=== PATIENT | female | born 1930 | race Caucasian/White ===

== ENCOUNTER → 2016-11-13 | Outpatient (REF) | payer MEDICARE ==
[2016-11-13 10:19] LABS: BILIRUBIN,URINE Negative (Negative); CLARITY,URINE Clear; COLOR,URINE Yellow; GLUCOSE, URINE (UA) Negative (Negative); LEUKOCYTE ESTERASE ,URINE Negative (Negative); UROBILINOGEN,URINE 0.2 mg/dL (0.2-1.0)
== END ==
LOC: LAB 09:27
PROVIDERS: ATTEND Family Medicine
DX: N39.0 Urinary tract infection, site not specified (principal)
CPT/HCPCS: 81003

== ENCOUNTER → 2016-12-22 | Outpatient (CLI) | payer MEDICARE | LOC: EMS 07:05 | DX: Z53.20 Procedure and treatment not carried out because of patient's decision for unspecified reasons (principal) ==

== ENCOUNTER → 2017-01-07 | Outpatient (CLI) | payer MEDICARE ==
[2017-01-07 14:22] LABS: BILIRUBIN,URINE Negative (Negative); CLARITY,URINE Clear; COLOR,URINE Yellow; GLUCOSE, URINE (UA) Negative (Negative); LEUKOCYTE ESTERASE ,URINE Negative (Negative); PH,URINE 5.5 (5.0 - 8.0); UROBILINOGEN,URINE 0.2 mg/dL (0.2-1.0)
[2017-01-07 14:57] LABS: ANION GAP 11.7 MEQ/L (3-15)
== END ==
LOC: LAB 14:03
PROVIDERS: ATTEND Family Medicine
DX: I48.1 Persistent atrial fibrillation (principal); R79.89 Other specified abnormal findings of blood chemistry; N39.0 Urinary tract infection, site not specified
CPT/HCPCS: 36415; 80048; 81003; 93005

== ENCOUNTER → 2017-01-22 | Outpatient (CLI) | payer MEDICARE ==
[2017-01-22 15:20] LABS: ANION GAP 12.3 MEQ/L (3-15); MAGNESIUM* 1.7 mg/dL (1.6-2.3)
== END ==
LOC: LAB 14:03
PROVIDERS: ATTEND Family Medicine
DX: E83.42 Hypomagnesemia (principal); R79.89 Other specified abnormal findings of blood chemistry
CPT/HCPCS: 36415; 80048; 83735

== ENCOUNTER → 2017-01-26 | Outpatient (CLI) | payer MEDICARE ==
--- NOTE | 2017-01-26 14:31 | Diagnostic Imaging Report ---
PROCEDURE: CT head without contrast. TECHNIQUE: Multiple contiguous axial images were obtained through the brain without the use of intravenous contrast. INDICATION: CVA. AVAILABLE COMPARISONS: None. FINDINGS: The size of the lateral, third and fourth ventricles is within normal limits. No mass effect or shift of midline structures identified. No acute intra-axial or extra-axial hemorrhage is seen. There is no abnormal extra-axial fluid collection. Periventricular white matter disease is present bilaterally compatible with age-related change and/or chronic microvascular ischemic change. There are no abnormally hyperdense vascular structures to suggest acute vessel thrombosis. No mass lesion is identified. No CT evidence for acute infarct. Calvarium is negative. IMPRESSION: 1. White matter disease compatible with age-related change and/or chronic microvascular ischemic change. No acute finding. Dictated by: Dictated on workstation # [id number]
== END ==
LOC: RAD 13:55
PROVIDERS: ATTEND Family Medicine
DX: I66.01 Occlusion and stenosis of right middle cerebral artery (principal)
CPT/HCPCS: 70450

== ENCOUNTER 2017-02-03 12:16 | Emergency (ER) | payer MEDICARE ==
[~2017-02-03] VITALS: Ht 160 cm; Wt 58.0 kg
--- OUTSIDE RECORDS SUMMARY | 2017-02-03 12:20 | XMS REPORT | Continuity of Care Document ---
Author Author [facility] Organization [facility] Address Unknown Phone Unavailable Care Team Providers Care [employer] General Supervisor Name Role Phone Alexis Salmeron MD PP [phone] Insurance Providers Payer Name Policy Number Subscriber Name Relationship Cj Richards [facility] [id number] Radha Abarca 18 Self / Same As Patient Medicare A And B [id number] Radha Abarca 18 Self / Same As Patient Advance Directives Directive Response Recorded Date Advanced Directives Yes 07/27/13 1:24pm Type Living Will 07/27/13 1:24pm Problems No Known Problems or Medical conditions. Allergies, Adverse Reactions, Alerts Allergen Type Severity Reaction Last Updated Penicillins Allergy 07/27/13 Fzmazkj-Tih-Eoc Reductase Inhibitor Allergy 07/27/13 meloxicam Allergy 07/27/13 Medications No known medications Response Recorded Date/Time Status not known Unknown Results No Known Relevant Diagnostic Tests, Laboratory Data and/or Discharge Summary. Procedures Procedure Code Date Urine Culture 12/15/12
[2017-02-03 12:39] LABS: BASOPHILS % (AUTO) 0 % (0-2); EOSINOPHILS % (AUTO) 0 % (0-4); LYMPHOCYTES # (AUTO) 0.9 X10^3; MEAN CORPUSCULAR HEMOGLOBIN 28.4 PG (26.0-34.0); MEAN CORPUSCULAR VOLUME 89 FL (80-100); MEAN PLATELET VOLUME 10.1 FL (6.0-9.5); MONOCYTES # (AUTO) 0.5 X10^3; MONOCYTES % (AUTO) 8 % (3-11); NEUTROPHILS # (AUTO) 5.3 X10^3; NEUTROPHILS % (AUTO) 78 % (51-67); PLATELET COUNT 193 10^3uL (150-450); WHITE BLOOD COUNT 6.76 10^3uL (4.0-11.0)
[2017-02-03 12:43] LABS: MEAN CORPUSCULAR HGB CONC 31.7 g/dL (31.0-37.0)
[2017-02-03 13:01] LABS: ALBUMIN 4.2 g/dL (3.4-5.0); ANION GAP 15.1 MEQ/L (3-15); CALCULATED IONIZED CALCIUM 4.6 mg/dL (3.8-4.6); TOTAL PROTEIN 7.6 g/dL (6.4-8.5)
[2017-02-03 13:04] LABS: BILIRUBIN,URINE Negative (Negative); COLOR,URINE Yellow; GLUCOSE, URINE (UA) Negative (Negative); LEUKOCYTE ESTERASE ,URINE 1+ (Negative); PH,URINE 6.5 (5.0 - 8.0); UROBILINOGEN,URINE 0.2 mg/dL (0.2-1.0)
--- NOTE | 2017-02-03 13:05 | NUR ---
Pt resting quietly on ER cart with HOB elevated approx 45 degrees. Responds verbally when questioned but does not initiate conversation. Does not open eyelids when asked to do so. Lt handgrip weak, Rt handgrip none. Does move toes and feet as commanded - feet movement required multiple commands. Not able to lift either leg when commanded to do so.
--- NOTE | 2017-02-03 13:07 | Diagnostic Imaging Report ---
PROCEDURE: CT head without contrast. TECHNIQUE: Multiple contiguous axial images were obtained through the brain without the use of intravenous contrast. INDICATION: Weakness. Compared 01/26/2017. FINDINGS: There is periventricular white matter disease hypointense likely owing to small vessel sequelae as a stable chronic finding, no sulcal effacement. No findings of focal or generalized edema. The basilar cisterns are patent. The ventricular system nondilated and nondisplaced. There is no hemorrhage. IMPRESSION: Unchanged chronic white matter disease, no hemorrhage, focal edema or acute pathology identified. Dictated by: Dictated on workstation # [id number]
[2017-02-03] MEDS ORDERED: HYDR-33 PO (13:18)
[2017-02-03] MEDS ORDERED: COLE625T9 PO (13:18)
[2017-02-03] MEDS ORDERED: LSNP20T PO (13:18)
[2017-02-03] MEDS ORDERED: LEVO50TA6 PO (13:18)
[2017-02-03] MEDS ORDERED: AMLO10TA82 PO (13:18)
--- NOTE | 2017-02-03 13:18 | Diagnostic Imaging Report ---
INDICATION: Chest pain and dyspnea. DISCUSSION: Single portable upright view of the chest was obtained, comparison 01/08/2016. Cardiomegaly is stable. Small left pleural effusion appears new. Patchy opacity within the medial left lung base could represent atelectasis and/or pneumonia. Mildly elevated right hemidiaphragm is stable. No osseous abnormality. IMPRESSION: 1. Small left pleural effusion. 2. Cardiomegaly. 3. Left lung base opacities. Dictated by: Dictated on workstation # [id number]
[2017-02-03 13:21] LABS: CLARITY,URINE Slightly Cloudy
[2017-02-03 13:37] LABS: URINE CENTRIFUGED VOLUME 12 mL
[2017-02-03 15:20] LABS: BILIRUBIN,URINE Negative (Negative); CLARITY,URINE Clear; COLOR,URINE Yellow; GLUCOSE, URINE (UA) Negative (Negative); LEUKOCYTE ESTERASE ,URINE Negative (Negative); UROBILINOGEN,URINE 0.2 mg/dL (0.2-1.0)
--- NOTE | 2017-02-03 15:36 | NUR ---
er requests 2nd straight cath, the first one obtained was to dirty, 2nd one retrieved and sent to lab
[2017-02-03 15:37] LABS: RBC,URINE 20-50 /HPF; URINE CENTRIFUGED VOLUME 10 mL
[2017-02-03 17:14] VITALS: BP 137/64
== END 2017-02-03 17:15 | disposition home or self-care (01) ==
LOC: ED 12:17
DX: R53.1 Weakness (principal); J90 Pleural effusion, not elsewhere classified
CPT/HCPCS: 36415; 51701; 70450; 71010; 80053; 81003; 81015; 83605; 83880; 85025; 86140; 96360; 99285; J7030; 99284

== ENCOUNTER → 2017-02-03 | Outpatient (CLI) | payer MEDICARE ==
[~2017-02-03] MED LIST: AMLO10TA82 PO; COLE625T9 PO; HYDR-33 PO; LEVO50TA6 PO; LSNP20T PO
== END ==
LOC: EMS 12:00
PROVIDERS: ATTEND Emergency Medicine
DX: R53.1 Weakness (principal)

== ENCOUNTER 2017-02-18 11:47 | Inpatient (IN) | payer MEDICARE ==
[~2017-02-18] VITALS: Ht 160 cm; Wt 70.1 kg
[~2017-02-18 11:47] MED LIST changes: -AC325T PO; -ASPI-586 PO; -CALC600T12 PO; -CHOL10002 PO; -CPR500T PO; -FURO20TA4 PO; -LACT10SO5 PO; -MULT-1034 PO; -NIAC500T24 PO; -OMEG1CAP14 PO; -OMEP20TA33 PO; -POTA10CA43 PO; -SPRN25T PO; -TR1C15 TOP; -TRIA10PO3 MC; -VIT1CAPS43 PO; -VITA400C58 PO
[2017-02-18] MEDS ORDERED: POTA10CA43 PO (12:08)
[2017-02-18] MEDS ORDERED: TR1C15 TOP (12:08)
[2017-02-18] MEDS ORDERED: FURO20TA4 PO (12:08)
[2017-02-18] MEDS ORDERED: TRIA10PO3 MC (12:08)
[2017-02-18] MEDS ORDERED: OMEP20TA33 PO (12:08)
[2017-02-18] MEDS ORDERED: ASPI-586 PO (12:08)
[2017-02-18] MEDS ORDERED: NS IV 500 ML 500 ML IV SCH (12:15)
[2017-02-18 12:33] LABS: BASOPHILS % (AUTO) 0 % (0-2); EOSINOPHILS % (AUTO) 1 % (0-4); LYMPHOCYTES # (AUTO) 1.2 X10^3; MEAN CORPUSCULAR HEMOGLOBIN 28.7 PG (26.0-34.0); MEAN CORPUSCULAR HGB CONC 32.2 g/dL (31.0-37.0); MEAN CORPUSCULAR VOLUME 89 FL (80-100); MEAN PLATELET VOLUME 9.9 FL (6.0-9.5); MONOCYTES # (AUTO) 0.5 X10^3; MONOCYTES % (AUTO) 8 % (3-11); NEUTROPHILS # (AUTO) 4.9 X10^3; NEUTROPHILS % (AUTO) 73 % (51-67); PLATELET COUNT 162 10^3uL (150-450); WHITE BLOOD COUNT 6.77 10^3uL (4.0-11.0)
[2017-02-18 12:47] LABS: ALBUMIN 3.7 g/dL (3.4-5.0); ANION GAP 14.4 MEQ/L (3-15); CALCULATED IONIZED CALCIUM 4.8 mg/dL (3.8-4.6); TOTAL PROTEIN 6.9 g/dL (6.4-8.5)
[2017-02-18 13:05] LABS: BILIRUBIN,URINE Negative (Negative); CLARITY,URINE Cloudy; GLUCOSE, URINE (UA) Negative (Negative); LEUKOCYTE ESTERASE ,URINE 1+ (Negative); PH,URINE 5.5 (5.0 - 8.0); UROBILINOGEN,URINE 0.2 mg/dL (0.2-1.0)
[2017-02-18 13:07] LABS: COLOR,URINE Dark Yellow
--- NOTE | 2017-02-18 13:08 | Diagnostic Imaging Report ---
CLINICAL INDICATION: Patient with weakness. Fell. Patient found unresponsive. EXAM: Axial CT scan of brain performed without IV contrast. Coronal sagittal reformatted images are created. COMPARISON: Head CT without IV contrast dated 02/03/2017. FINDINGS: There is no evidence of acute cerebral infarct, intracranial hemorrhage, or gross mass effect. Again seen patchy confluent areas of low-attenuation white matter changes seen throughout both cerebral hemispheres, likely representing chronic small vessel ischemic disease and leukoaraiosis. There is normal bee-white matter distinction. The brain parenchymal volume appears appropriate for patient's age. There is no significant midline shift or herniation. There is no evidence of hydrocephalus. The basal cisterns are unremarkable. The skull, extracranial soft tissue, and orbits are unremarkable. There is mild mucosal thickening involving the ethmoid sinus. IMPRESSION: Stable CT scan of brain with no evidence of interval acute intracranial process. Dictated by: Dictated on workstation # [id number]
[2017-02-18 13:12] LABS: URINE CENTRIFUGED VOLUME 12 mL
[2017-02-18 13:52] LABS: BILIRUBIN,URINE Negative (Negative); CLARITY,URINE Cloudy; GLUCOSE, URINE (UA) Negative (Negative); LEUKOCYTE ESTERASE ,URINE Negative (Negative); PH,URINE 5.5 (5.0 - 8.0); UROBILINOGEN,URINE 0.2 mg/dL (0.2-1.0)
[2017-02-18 13:53] LABS: COLOR,URINE Dark Yellow; RBC,URINE 0-2 /HPF; URINE CENTRIFUGED VOLUME <10mL Unspun
[2017-02-18] MEDS ORDERED: CIPROFLOXACIN 400 MG/200 ML 200 ML IV ONE (14:05)
--- NOTE | 2017-02-18 14:42 | NUR ---
Ciprofloxacin IV stated at 100 ml/hr to right peripheral IV site per physician order. Addendum: 02/23/17 at 1316 by [id number] Amendment undone in ED - 02/23/17 at 1321 by [id number] Ciprofloxacin IV was started at 100 ml/hr to right peripheral IV site per physician order. patient was transfered to the med/Surg floor afterm IV was started.
--- NOTE | 2017-02-18 14:51 | NUR ---
vitals wer temp 97.3 temporal, pulse 93, resp 16, bp 147/63, and SpO2 95% on room air.
[2017-02-18 15:13] LABS: AMPHETAMINE SCREEN, URINE Negative (Negative); CANNABINOID SCREEN, URINE Negative (Negative); METHAMPHETAMINE SCREEN URINE S NEGATIVE (NEGATIVE); OPIATE SCREEN URINE Positive (Negative); PROPOXYPHENE STAT NEGATIVE (NEGATIVE)
--- NOTE | 2017-02-18 15:25 | NUR ---
Ciprofloxacin IV was started at 1523 to right peripheral IV site. IV was set to run at 100ml/hr for 30 minutes. Patient was transfered to Med/surg floor after IV med was started.
[2017-02-18 17:20] VITALS: BP 143/64
--- NOTE | 2017-02-18 17:20 | NUR ---
Admit to room 310 per stretcher from ED where the patient has been most of the day. Found at home this morning by family where she had apparently been sitting at the kitchen table all night and was mostly unresponsive. To ED per EMS. Several family members accompany patient to room. See admission assessments.
[2017-02-18] MEDS ORDERED: ACETAMINOPHEN 325 MG TAB (TYLENOL) PO PRN (17:35)
[2017-02-18] MEDS ORDERED: POLYETHYLENE GLYCOL 17 GM (MIRALAX) PACKET PO PRN (17:35)
[2017-02-18] MEDS ORDERED: PROMETHAZINE HCL INJ 12.5 MG in SODIUM CHLORIDE 25 ML IV PRN (17:35)
[2017-02-18] MEDS ORDERED: ONDANSETRON 4 MG (ZOFRAN) ORAL DISSOLVE TAB PO PRN (17:35)
[2017-02-18] MEDS ORDERED: DOCUSATE SODIUM 100 MG (COLACE) CAP PO PRN (17:35)
[2017-02-18] MEDS ORDERED: MAGNESIUM HYDROXIDE 80MG/ML (MILK OF MAGNESIA) 30 ML UDC PO PRN (17:35)
[2017-02-18] MEDS ORDERED: CALCIUM CARBONATE CHEWABLE 300 MG (TUMS) TABLET PO PRN (17:35)
[2017-02-18] MEDS ORDERED: IBUPROFEN 600 MG (MOTRIN) TAB PO PRN (17:35)
[2017-02-18] MEDS ORDERED: MAG HYDROX/AL HYDROX/SIMETH 200-200-20/5 ML (MAG-AL PLUS) 30 ML UDC PO PRN (17:35)
--- NOTE | 2017-02-18 18:00 | NUR ---
During admission assessment, patient participates in answering questions, but according to family her answers were not always accurate. Patient oriented to person and place; disoriented to time. Of note patient has 3-4+ pitting edema on bilateral lower extremities. Lower legs are reddedned with shiny appearance and some blistering. This is the only pain complaint that the patient has.
--- NOTE | 2017-02-18 18:03 | History and Physical (E) ---
History & Physical PCP: Alexis Salmeron MD CC: Lethargy, altered mental status. ANALY Abarca is a 86 year old female admitted from ED 02/18 where she presented from home via EMS. Has been lethargic for the last 24 hours and this AM, family report seeing her at kitchen table, not talking, not really able to get up on her own. They had to lower her to the floor. In ED, vitals were actually stable and normal. CBC was fairly unremarkable. Chemistry showed normal electrolytes, preserved renal function. AST 85, ALT 57, AlkP 192, Bili 1.1. Lactic acid was normal. UA showed UTI. Tox screen positive for opiates. CT head negative for acute changes. CXR was not checked but she had a CXR from ED visit 02/03/2017 with results as noted below. She was given NS bolus x 2 in ED and ciprofloxacin. She was then admitted for further management. ED physician reports additional history: has been more confused in the last few weeks. Taking medications incorrectly at home. PCP has been planning to admit her NH but this has not yet happened. On arrival to unit, stirs to exam but appears tired. Responds intermittently. History obtained from son, daughter, who are both present. Son was visiting today for a routine check up and found her slumped at the kitchen table, not very responsive. The front door was open. She has notably been more tired and fatigued. There was concern she maybe had slept all night at the kitchen table. When asked, she says she doesn't know if that's what happened. She says she has been sleeping a lot lately. Has pain in right hip related to prior hip fracture. Denies fever. Has had vomiting at home. No abdominal pain. Denies constipation. Some diarrhea, she thinks. No dyspnea. Denies chest pain. PMH * HTN * Chronic pain * Hypothyroidism * HLD * GERD * TIA * OA * Osteoporosis * Heart murmur * Bilateral lower extremity edema * Right hip fracture 10/2016 * Falls at home PSH * Tonsillectomy * Appendectomy * D&C * Cholecystectomy * Hysterectomy * Oral surgery * Basal cell carcinoma excision * Eyelid surgery bilaterally * Right partial hip replacement 10/2016 * Cataract surgery * Hysterectomy ALLERGIES: Please see list at end of report. HOME MEDICATIONS: Please see list at end of report. FH SH Lives independently in her own apartment. ROS CONSTITUTION: Lost at least 24 pounds just in the last few weeks. Denies fever or chills. More tired. HEENT: No change in vision or hearing. No sores in mouth, sore throat. CV: No chest pain, palpitations. PULM: No cough, shortness of breath, difficulty breathing. GI: Diarrhea at times. Some vomiting at times. No constipation. : No dysuria. No blood in urine. MS: Right hip pain. Bilateral knee pain, arthritis. NEURO: Generalized weakness. INTEG: No rashes, lesions, or sores. ENDO: Feels cold frequently. HEME/LYMPH: No easy bruising or bleeding. No swollen glands. PSYCH: No change in mood or behavior. OBJECTIVE Vital Signs Date Time Temp Pulse Resp B/P Pulse Ox O2 Delivery O2 Flow Rate FiO2 02/18/17 11:55 98.0 85 16 125/57 97 Room Air GEN: Now more interactive but appears quite tired and can't keep eyes open. HEENT:Eyes closed. Mild eyelid swelling. On exam, clear sclerae, Arcus senilis. EOMI. Somewhat dry oral mucosa. CV: RRR S1 S2 audible with III/ systolic crescendo murmur loudest at LSB. LUNGS: CTA B though mildly diminished. No R/R/W. ABD: Soft, NT/ND with normal bowel sounds. EXTR: 3+ BLE edema from feet to knees. Bilateral BLE erythema with pebbling and chronic venous stasis changes. INTEG: Legs as described. Otherwise, age related changes and pallor. NEURO: Generalized weakness. Facial nerves seem generally weak though symmetric. Arm strength 3/5 bilaterally. Gait not assessed. No clonus. Normal patellar and ankle reflexes. Weight: 75 kg Laboratory Results-14 Days 02/18/17 12:30: Acetaminophen Level < 10.0L, Alanine Aminotransferase (ALT/SGPT) 57, Albumin 3.7 , Albumin/Globulin Ratio 1.156, Alkaline Phosphatase 192H, Anion Gap 14.4, Aspartate Amino Transf (AST/SGOT) 85H, BUN/Creatinine Ratio 28H, Basophils # ( Auto) 0.0, Basophils (%) (Auto) 0, Blood Urea Nitrogen 24H, Calcium Level 10.6, Calcium/Ionized Calcium Ratio 4.8H, Calculated Osmolality 280, Carbon Dioxide Level 25, Chloride Level 108, Creatinine 0.87, Eosinophils # (Auto) 0.0, Eosinophils (%) (Auto) 1, Estimat Glomerular Filtration Rate 74.7, Estimated GFR (Non- 61.7, Glucose Level 100#, Hematocrit 39.50, Hemoglobin 12.7, Lymphocytes # (Auto) 1.2, Lymphocytes (%) (Auto) 18L, Mean Corpuscular Hemoglobin 28.7, Mean Corpuscular Hemoglobin Concent 32.2, Mean Corpuscular Volume 89, Mean Platelet Volume 9.9H, Monocytes # (Auto) 0.5, Monocytes (%) (Auto) 8, IC-Cof-Y-Type Natriuretic Peptide 210, Neutrophils # ( Auto) 4.9, Neutrophils (%) (Auto) 73H, Platelet Count 162, Potassium Level 4.5, Red Blood Count 4.43, Red Cell Distribution Width 16.0H, Sodium Level 143, Total Bilirubin 1.1H, Total Protein 6.9, White Blood Count 6.77 02/18/17 12:55: Urine Bacteria 4+H, Urine Bilirubin Negative, Urine Blood Trace-intactH, Urine Clarity Cloudy, Urine Collection Type Catheter, Urine Color Dark yellow, Urine Glucose (UA) Negative, Urine Ketones 1+H, Urine Leukocyte Esterase 1+H, Urine Microscopic RBC 5-10H, Urine Mucus Rare, Urine Nitrite PositiveH, Urine Protein 1+H, Urine Specific Howard 1.025, Urine Squamous Epithelial Cells >100, Urine Urobilinogen 0.2, Urine WBC 10-20H, Urine pH 5.5, Volume Urine Centrifuged 12 ml 02/18/17 13:35: Urine Bacteria 4+H, Urine Bilirubin Negative, Urine Blood Trace-intactH, Urine Clarity Cloudy, Urine Collection Type Catheter, Urine Color Dark yellow, Urine Glucose (UA) Negative, Urine Ketones TraceH, Urine Leukocyte Esterase Negative, Urine Microscopic RBC 0-2, Urine Mucus Rare, Urine Nitrite PositiveH, Urine Protein TraceH, Urine Specific Howard 1.025, Urine Squamous Epithelial Cells None, Urine Urobilinogen 0.2, Urine WBC 5-10H, Urine pH 5.5, Volume Urine Centrifuged <10ml unspun, Ur Tricyclic Antidepressants Screen Negative, Urine Amphetamines Screen Negative, Urine Barbiturates Screen Negative, Urine Benzodiazepines Screen Negative, Urine Cannabinoids Screen Negative, Urine Cocaine Screen Negative, Urine Methadone Screen Negative, Urine Methamphetamines Screen Negative, Urine Opiates Screen PositiveH, Urine Oxycodone Screen Negative, Urine Phencyclidine Screen Negative, Urine Propoxyphene Screen Negative 02/18/17 14:22: Lactic Acid Level 1.6 MICRO 02/18 Blood culture PENDING 02/18 Urine culture PENDING IMAGING 02/18/17 CT HEAD WO CLINICAL INDICATION: Patient with weakness. Fell. Patient found unresponsive. EXAM: Axial CT scan of brain performed without IV contrast. Coronal sagittal reformatted images are created. COMPARISON: Head CT without IV contrast dated 02/03/2017. FINDINGS: There is no evidence of acute cerebral infarct, intracranial hemorrhage, or gross mass effect. Again seen patchy confluent areas of low-attenuation white matter changes seen throughout both cerebral hemispheres, likely representing chronic small vessel ischemic disease and leukoaraiosis. There is normal bee-white matter distinction. The brain parenchymal volume appears appropriate for patient's age. There is no significant midline shift or herniation. There is no evidence of hydrocephalus. The basal cisterns are unremarkable. The skull, extracranial soft tissue, and orbits are unremarkable. There is mild mucosal thickening involving the ethmoid sinus. IMPRESSION: Stable CT scan of brain with no evidence of interval acute intracranial process. REFERENCE 02/03/17 CHEST 1 VIEW, AP/PA ONLY* INDICATION: Chest pain and dyspnea. DISCUSSION: Single portable upright view of the chest was obtained, comparison . Cardiomegaly is stable. Small left pleural effusion appears new. Patchy opacity within the medial left lung base could represent atelectasis and/ or pneumonia. Mildly elevated right hemidiaphragm is stable. No osseous abnormality. IMPRESSION: 1. Small left pleural effusion. 2. Cardiomegaly. 3. Left lung base opacities. ASSESSMENT Radha Abarca is a 86 year old female admitted from ED 02/18 with encephalopathy and urinary tract infection. She has had a significant decline in function and ability to provide self-care. She has several chronic problems. PLAN * Encephalopathy: Could be due to UTI but differential includes other infectious , metabolic, neurologic, medication adverse effect. Check TSH, ammonia. Treat UTI. Avoid sedatives and narcotics. OT eval and treat. Consider MRI. * Fatigue, Unintentional Weight Loss: Broad differential. Initial eval: TSH, FT4 , ESR, CRP. Treat UTI. Consider autoimmune workup, MG workup, MS workup. Template Worker consult. * Complicated UTI: Urine and blood cultures pending. Got ciprofloxacin in ED, but because of encephalopathy, switch to ceftriaxone. (PCN allergy noted.) Treat for 5 days minimum. * BLE Edema: No prior history of heart failure. Check for prior echo. Hold furosemide for now. JANAE mehta. * Heart Murmur, Possible Heart Failure: Check NT-pro-BNP. Check echo. nt * Dehydration: On the basis of labs, exam. NS bolus given in ED. Additional liter maintenance. I&O, daily weight. * Medication Non-adherence: Reportedly taking medications at home incorrectly and inconsistently. Likely needs placement, per PCP and family. * Deconditioning: PT/OT eval and treat. * F/E/N: Regular diet. IVF as above. Peripheral IV. I&O, daily weight. * Prophylaxis: Enoxaparin * Code Status: DNR. Discussed at time of admission. * Dispo: Inpatient expecting 3-day stay minimum. Would probably benefit from skilled care. Probably needs long-term placement. CHRONIC ISSUES Home medications to be reviewed: * HTN: Lisinopril, amlodipine * Chronic Pain, OA: Hold narcotics due to encephalopathy * Hypothyroidism: Check TSH. Levothyroxine. * HLD: Colesevelam * GERD: Pantoprazole (sub for omeprazole). * History of TIA, CVA: Aspirin Allergies/Home Medications Allergies: Coded Allergies: Penicillins (Verified Allergy, 07/27/13) Ytkedof-Xfv-Iah Reductase Inhibitor (Verified Allergy, 07/27/13) meloxicam (Verified Allergy, 07/27/13) Reported Home Medications Scheduled Amlodipine Besylate (Amlodipine Besylate) 10 MG PO DAILY (Reported) Aspirin (Aspir 81) 81 MG PO DAILY (Reported) Colesevelam (Welchol) 1,250 MG PO BID WITH MEALS (Reported) Furosemide (Furosemide) 40 MG PO DAILY (Reported) Levothyroxine Sodium (Levothyroxine Sodium) 50 MCG PO DAILY (Reported) Lisinopril (Lisinopril) 20 MG PO DAILY (Reported) Omeprazole Magnesium (Prilosec OTC) 20 MG PO BID (Reported) Potassium Chloride (Potassium Chloride) 10 MEQ PO DAILY (Reported) Triamcinolone Acet (Kenalog 0.1% Cream) 1 APPLIC TOP HS (Reported) Scheduled PRN Hydrocodone/Acetaminophen (ED- [place] 5/325mg #6) 1-2 TAB PO Q6H PRN PRN PAIN ( Reported) Discontinued Medications Triamcinolone (Triamcinolone) 10 GM MC BID (Reported) Discontinued Reason: Entered in error Copies to: End of Report . THELMA GARZA MD Feb 18, 2017 16:15
[2017-02-18] MEDS ORDERED: OMEG1CAP14 PO (18:18)
[2017-02-18] MEDS ORDERED: CHOL10002 PO (18:18)
[2017-02-18] MEDS ORDERED: CALC600T12 PO (18:18)
[2017-02-18] MEDS ORDERED: MULT-1034 PO (18:18)
[2017-02-18] MEDS ORDERED: VITA400C58 PO (18:18)
[2017-02-18] MEDS ORDERED: NIAC500T24 PO (18:18)
[2017-02-18] MEDS ORDERED: VIT1CAPS43 PO (18:18)
[2017-02-18] MEDS ORDERED: NS FLUSH 10 ML PRN IV (18:20)
[2017-02-18] MEDS ORDERED: NS FLUSH 3 ML PRN IV (18:20)
--- NOTE | 2017-02-18 18:20 | NUR ---
MED REC COMPLETE--current med list obtained from external med history application and patient report (written list).
[2017-02-18] MEDS ORDERED: morphine INJ 2 MG/ML 1 ML SYRINGE IV PRN (18:25)
--- NOTE | 2017-02-18 19:15 | NUR ---
Report to white metal corrosion proofer nurse.
--- NOTE | 2017-02-18 19:35 | NUR ---
Pt is resting in bed asleep, awakens to name, alert to self, Resp are even and nonlabored, LCTAB, HRRR, BS are active x 4 quadrants. SL is patent, no redness, swelling, or s/s of infection noted at this time. Denies pain or discomfort at this time. Bed alarm is on, call light is in reach, will continue to monitor frequently.
[2017-02-18 20:00] VITALS: BP 139/57
[2017-02-18] MEDS: LIDOCAINE (LIDODERM) 5% PATCH TOP SCH (20:21)
[2017-02-18] MEDS: cefTRIAXone SODIUM 1,000 MG in SODIUM CHLORIDE 50 ML IV SCH (20:21)
[2017-02-18] MEDS: LACTULOSE ORAL SOLUTION 10 GM/15 ML UDC PO SCH (20:21)
[2017-02-18] MEDS: CHOLECALCIFEROL 1000 INT UNITS (VITAMIN D3) TABLET PO SCH (21:00)
[2017-02-18] MEDS ORDERED: NON-FORMULARY MEDICATION 1 EA EA (Vit C/E/Zn/Coppr/Lutein/Zeaxan (Preservision Areds 2 Sof PO SCH (21:00)
[2017-02-18] MEDS: OMEGA-3 FATTY ACIDS (FISH OIL) 500 MG CAPSULE PO SCH (21:30)
[2017-02-19 00:20] VITALS: BP 141/70
[2017-02-19] MEDS: LIDOCAINE PATCH REMOVAL TOP SCH ×2 (02:27→19:48)
[2017-02-19 04:27] VITALS: BP 131/56
--- NOTE | 2017-02-19 04:29 | NUR ---
Pt has been resting in bed asleep most of this shift, does not appear to be in pain or discomfort at this time. Call light is in reach. Will continue to monitor.
[2017-02-19] MEDS: LEVOTHYROXINE 50 MCG (LEVOTHROID) TABLET PO SCH (06:04)
[2017-02-19 06:29] LABS: BASOPHILS % (AUTO) 0 % (0-2); EOSINOPHILS # (AUTO) 0.1 10^3uL; EOSINOPHILS % (AUTO) 1 % (0-4); LYMPHOCYTES # (AUTO) 1.7 X10^3; MEAN CORPUSCULAR HEMOGLOBIN 28.9 PG (26.0-34.0); MEAN CORPUSCULAR HGB CONC 32.4 g/dL (31.0-37.0); MEAN CORPUSCULAR VOLUME 89 FL (80-100); MEAN PLATELET VOLUME 10.3 FL (6.0-9.5); MONOCYTES # (AUTO) 0.8 X10^3; MONOCYTES % (AUTO) 10 % (3-11); NEUTROPHILS # (AUTO) 4.7 X10^3; NEUTROPHILS % (AUTO) 65 % (51-67); PLATELET COUNT 155 10^3uL (150-450)
[2017-02-19 06:37] LABS: ALBUMIN 2.9 g/dL (3.4-5.0); ANION GAP 9.4 MEQ/L (3-15); CALCULATED IONIZED CALCIUM 4.8 mg/dL (3.8-4.6); TOTAL PROTEIN 5.7 g/dL (6.4-8.5)
[2017-02-19 07:27] VITALS: BP 144/57
--- NOTE | 2017-02-19 08:14 | Diagnostic Imaging Report ---
INDICATION: Fatigue and unintentional weight loss Two views of the chest were obtained with comparison made to study of 02/03/2017. Overall heart size and pulmonary vascularity are within normal limits. There is probable mild hiatal hernia. There is no evidence of pneumothorax, consolidation or mass lesion. Overall, there has been no adverse change. There is no significant pleural fluid. IMPRESSION: Stable chest without acute abnormality or adverse change. Dictated by: Dictated on workstation # [id number]
[2017-02-19] MEDS: LACTULOSE ORAL SOLUTION 10 GM/15 ML UDC PO SCH (09:00)
[2017-02-19] MEDS ORDERED: ENOXAPARIN 30 MG/0.3 ML (LOVENOX) SYR SC SCH (09:00)
[2017-02-19] MEDS ORDERED: ASPIRIN 81 MG CHEW (LOW-DOSE) PO SCH (09:00)
--- NOTE | 2017-02-19 09:12 | NUR ---
NUTRITION ASSESSMENT Level 1 Patient: Radha Abarca Age/Sex: 86/F Date Screened: 02-19-17 Weight: 151.3#/68.8 kg Height: 63 inches Primary Diagnosis: UTI, dehydration Diet Order: cardiac Relevant labs: UDS (+) opiates, hepatitis panel (pending), glucose 86, AST 96, ALT 58, ammonia 53.9 (4-26), vitamin D 1,25(OH)D3 (pending) Food allergies: N Nutrition Assessment Criteria Age over 80: 4 points Body Mass Index (BMI) under 19: N Admission Screening Indicates Risk? 6 points Moderate/High Risk Diagnosis: 3 points TPN or PPN: N NPO or clear liquid diet: N Serum Glucose <70 or >180: N Hgb A1c >6.7: N/A Total: 13 points Risk Screen: __ Patient at low nutritional risk based on available data; reevaluate in 5-7 days __ Patient at moderate nutritional risk based on available data; reevaluate in 3-5 days _X_ Patient at high nutritional risk; complete Nutrition Assessment within 48 hours of admission.
[2017-02-19] MEDS: COLESEVELAM 625 MG PO SCH ×2 (09:44→17:33)
[2017-02-19] MEDS: NS FLUSH 3 ML DAILY IV SCH (09:45)
[2017-02-19] MEDS: amLODIPine 5 MG (NORVASC) TAB PO SCH (09:45)
[2017-02-19] MEDS: OMEGA-3 FATTY ACIDS (FISH OIL) 500 MG CAPSULE PO SCH ×2 (09:46→19:46)
[2017-02-19] MEDS: PANTOPRAZOLE 40 MG (PROTONIX) TAB PO SCH (09:46)
[2017-02-19] MEDS: CHOLECALCIFEROL 1000 INT UNITS (VITAMIN D3) TABLET PO SCH ×2 (09:46→19:48)
[2017-02-19] MEDS: lisINopril 20 MG (PRINIVIL) TABLET PO SCH (09:47)
[2017-02-19] MEDS: VIT A,C & E/LUTEIN/MINERALS (I-VITE) TABLET PO SCH ×2 (09:47→19:46)
[2017-02-19] MEDS: LIDOCAINE (LIDODERM) 5% PATCH TOP SCH (09:49)
--- NOTE | 2017-02-19 10:02 | NUR ---
NUTRITION ASSESSMENT Level II Patient: Radha Abarca Age/Sex: 86/F Date Assessed: 02-19-17 ASSESSMENT Pertinent History: Patient admitted with UTI and dehydration and screened at high nutritional risk secondary to unintentional weight loss with weakness, confusion, difficulty chewing, and concern for ability to care for herself at home. PMHx includes HTN, chronic pain, hypothyroidism, GERD, TIA, osteoarthritis, osteoporosis, BLE edema, right hip fx 2016, and falls at home. She has been confused at times since admission, with family reporting that pt. is making inaccurate comments at times. However, she appeared lucid when I visited with her and family was in the room. Pt. lives alone in her own apartment, and there is concern that she spent an entire night at the kitchen table prior to admission, confused. I called her PCP office to clarify weight loss history, and the office had no idea about any weight loss. They had her weighing 149# on 02-10-17. Patient and family report she weighed ~190# in 2016 when she broke her hip and was admitted to [facility] for rehab. Pt. stated she takes a water pill which helps keep her weight down--it is unclear at this time whether her weight loss is secondary to fluid/diuresis or something else. Noted she was admitted with 3-4+ pitting edema which may be masking additional weight loss. Pt. also reports trouble chewing/swallowing some foods, mostly fresh fruits and vegetables. She can chew tender roast and chicken if its moist. She does get Meals on Wheels for lunch, and reports she cooks for herself in the evenings. Her MOW diet order is regular without any modified texture. Meds/Nutrition: MVI, calcium carbonate, Protonix, Synthroid, fish oil, vitamin D, Lactulose Weight: 151.3#/68.8 kg Height: 63 inches Body Mass Index (BMI): 26.9 [place] Body Weight : 115#/52.2 kg % IBW: 131% GASTROINTESTINAL Appetite: fair, eating 50% Diet Order: 2 g. sodium Unintentional loss of >10 lbs. in 3 months: Yes, by patient/family report Difficult to chew/swallow: Yes Diabetes: N Relevant Labs: UDS (+) opiates, hepatitis panel (pending), glucose 86, AST 96, ALT 58, ammonia 53.9 on 02-18, vitamin D 1,25(OH)D3 (pending) Calculations for Nutritional Assessment Estimated calorie needs: 22-25 kcals/kg = 1,500-1,700 kcals Estimated protein needs: 1.0-1.3 g/kg = 68-88 g./day DIAGNOSIS 1. Nutrition Diagnosis: Unintentional weight loss related to (unsure) possibly fluid/diuresis as evidenced by reports of 24# weight loss in the past couple of weeks but simultaneous contradictory reports of 40# weight loss since October 2016 and lack of knowledge of any weight loss by PCP office. 2. Nutrition Diagnosis: Difficulty chewing/swallowing related to mild dysphagia as evidenced by reports by patient of difficulty chewing certain foods and hx. difficulty swallowing large pills. NUTRITIONAL INTERVENTION Goal: Patient will receive adequate nutrition to meet her needs. Plan: Will change diet to 2 g. sodium, soft and specify meat to be cut in small bites and served with low-sodium gravy to make it moist. Left a message for the dietitian at [facility] re: weight history when patient was there in October; am awaiting her response. MONITORING & EVALUATION _X_ Monitor patients menu selections _X_ Monitor patients food intake per nursing notes __ Monitor NPO/clear liquid days __ Monitor lab values __ Monitor I&O _X_ Other--monitor weight and chewing/swallow ability
--- NOTE | 2017-02-19 11:00 | NUR ---
Report given to Kayla LEMA and care relinquished
[2017-02-19 12:04] VITALS: BP 122/57
--- NOTE | 2017-02-19 12:12 | Physical Therapy Evaluation(E) ---
Plan of Care STG: Plan-Treatment Functional: Trans. Safe w/ AD STG Time Frame: 3 Days Goals Discussed/Agreed: Yes Plan: Functional Strengthening, Gait & Transfer Training, Neuro Re-Education, Progressive Ambulation, Strengthening, Transfer Training, Therapy Excercise Aware of Dx and Prognosis: Yes Aware of Risk & Benefit: Yes To be Seen: Daily Thursday-Thursday Initial Evaluation Service Date/Time 02/19/17, 11:57 Primary Diagnosis: (1) Weakness ICD Code: R53.1 (2) Malaise ICD Code: R53.81 (3) Encephalopathy ICD Code: G93.40 (4) UTI (urinary tract infection) ICD Code: N39.0 Treatment Diagnosis: (1) Weakness ICD Code: R53.1 (2) Malaise ICD Code: R53.81 Onset Date: 02/18/2017 Resuscitation Status: Do Not Resuscitate Precaution/Isolation: Standard Precautions Fall Level: High Risk 51 or greater Initial Assessment Reason for Rehab: Increase Mobility, Increase Balance, Increase AROM, Increase Transfers, Increase Endurance Medical History: Other (HTN, chornic pain, GERD, TIA, OA, osteoporosis, R hip fx 10/2016; hear murmur, edematous LEs. ) Pain Location/Comment Patient has pain in lower extremities with palpation. Prior Level of Function The patient lives in a ground level apartment with no entry steps. Ambulated around apartment with AWW. Had meals on wheels. Independent with bathing as she has a shower bench. Noted increasing fatigue. Rehabilitation Potential: Fair (Patient has good family support. ) Assistive Device: FWW Distance Walked in Feet 4 feet to commode. Assist: Min Assist/Contact Guard Gait Description: Short Step Length, Uneven Weight Shift Pain in right hip secondary to fx in 10/2016 Gait Limitations: Fatigue, Pain ROM/Strength Hip Mobility: Right Hip Strength: 3- Left Hip Strength: 3- Knee Flexion Mobility: Right Knee Flexion Strength: 3 Left Knee Flexion Strength: 3 Knee Extension Mobility: Right Knee Extension Strength: 3 Left Knee Extension Strength: 3 Ankle Mobility: Right Ankle Strength: 3 Left Ankle Strength: 3 Assessment/Goals Initial Transfer Assessment Rolling: Minimal Assistance Sit-Supine: Moderate Assistance (of 1 ) Sitting Edge of Bed: Contact Guard Assist Supine-Sit: Minimal Assistance Sit-Stand from Bed: Minimal Assistance Stand-Sit: Minimal Assistance Pivot Transfers: Not Assessed/NA Ambulation: Minimal Assistance Distance Walked in Feet 4 steps with FWW to commode. Transfer Short Term Goals Rolling: Contact Guard Assist Sit-Supine: Contact Guard Assist Sitting Edge of Bed: Supervision or setup Supine-Sit: Contact Guard Assist Sit-Stand from bed: Contact Guard Assist Stand-Sit: Contact Guard Assist Ambulation: Contact Guard Assist Distance to Walk in Feet 100 feet Treatments Ambulation Weight Bearing Status: Full Assistive Device: FWW Gait Assist: Min Assist/Contact Guard Gait Description: Unsteady, Short Step Length Gait Training: Limitations: Fatigue Coding Time In: 1119 Time Out: 1147 Total Minutes: 28 Charges: 73575 Eval< 20 min, 24157 Ther Activity Patient resting in bed with call light in reach and tab alarm intact. MEGAN JARQUIN PT Feb 19, 2017 12:12
--- NOTE | 2017-02-19 12:18 | OT Therapy Evaluation (E) ---
POC Plan of Care Problems Identified: Activity Tolerance, Balance, Body Awareness, Lt UE Strength, Rt UE Coordination, Rt UE Strength, Safety Awareness Plan: Evaluation-OT, ADL/Self Care Management, Therapy Exercises, Therapy Activities, Pt/Family/Staff Education Frequency of OT: Five times weekly Duration of OT: 1 week Therapy to Include: ADL training, Balance with ADLs, Pt/family education, Therapeutic activities, UE strengthing Discharge Recommendations: TCU/Skilled NH Pt would benefit from skilled occupational therapy services to improve independence with self care tasks for return to prior level of function with increased safety awareness. Pt. Aware of Dx and Prognosis: Yes Pt. Aware of Risk & Benefit: Yes Goals: Discussed with patient Short Term Goals Will Dress Upper Extremity: Independently Will Dress Lower Extremity: With Min Assistance Will do Toileting: With Min Assistance Will Perform Funct Transfer: With Setup/SBA STG #1 Pt will participate in 15 min of ther-ex with 4 or less rest breaks. Halfway Goals Will Dress Upper Extremity: Independently Will Dress Lower Extremity: With Setup/SBA Will do Tub/Shower Transfer: With Setup/SBA Will Bathe Self: With Setup/SBA Will do Toilet Transfers: Independently Will do Toilieting: Independently Will Perform Kitchen Mobility: With Setup/SBA Inital Evaluation/General Service Date/Time 02/19/17, 12:18 Primary Diagnosis: (1) Weakness ICD Code: R53.1 (2) Malaise ICD Code: R53.81 (3) Encephalopathy ICD Code: G93.40 (4) UTI (urinary tract infection) ICD Code: N39.0 Treatment Diagnosis: (1) Weakness ICD Code: R53.1 Onset Date: 02/18/17 Start of Care Date: Feb 19, 2017 Precaution/Isolation: Standard Precautions Fall Level: High Risk 51 or greater Resuscitation Status: Do Not Resuscitate Pertinent Medical History: Other (HTN, chornic pain, GERD, TIA, OA, osteoporosis, R hip fx 10/2016; hear murmur, edematous LEs. ) Pain Level: 6 Pain Locattion/Comments Pt reports occasional pain in right hip. States she broke it in June 2016. Oxygen Needed: Room air Rehabilitation Potential: Good Potential Based On Patient's motivation to return home. Rational for Skilled Treatment: Allow return to home, Assistance with ADLs, Deconditioning, Maximize Safety, Prevent Falls Living Status Prior to Admit: Alone (One level apartment ) Prior Level of Function: Independent ADLs (Prior to onset, pt reports independence with self care tasks. Pt reports receiving Meals on Wheels and assistance from family for cleaning and medication management. ) Support Persons: Adult Child Entry Into Home: Level Entry Shower and Tub Type: Tub/shower combo-rails Assist Devices: Tub TSF Bench Toilet Type: Raised with grab bars Comment Pt reports using a FWW for in the home and a 4WW for community. Pt reports no history of falls. Current Function Assessment Mental Status Patient Orientation: Person, Place, Time, Situation Mental Status: Alert Cognition Attention: Impaired Memory: Impaired Safety/Judgement: Impaired Visual/Perceptual Skills Glassess: Yes Hearing: Impaired Hand Dominance Hand Dominance: Right ROM/Strength Range of Motion : ROM: WNL Strength Comment BUE 4-/5 Neurological Coordination: Minimally impaired Endurance Activity Endurance: Fair Bed Mobility/Transfers Bed Mobility: Minimum assist Sit to Stand: Minimum assist Chair Transfer: Minimum assist Sitting Balance: SBA ADLs Hand : Feeding Self: Independent Bathing Shower/Bench Transfer Ability: Minimum assist Bathing- Type of Assistance: Moderate Assist Toileting Toilet Hygiene: Maximum Assist Toilet Transfer Ability: Minimum assist Additional Assessment/Comments The patient presents with decreased strength, decreased activity tolerance, decreased safety awareness and requires assistance for safe completion of self care tasks. Pt presents with co-morbidities affecting performance. Required no modification of tasks or assistance during evaluation, placing pt at a low complexity level. CPT/G Codes Time In: 8:35 Time Out: 9:03 Total Minutes: 28 (11/22 eval) CPT Codes: 18528 Eval< 20 minutes HERBERT ORTIZ OT Feb 19, 2017 12:18
--- NOTE | 2017-02-19 12:21 | NUR ---
Nutrition Follow Up: Received clarification on patient's weight hx. from the RD at the [facility]. Pt.'s weight after admission there following her hip fracture in Oct. was: 11-23-16 180.6# (which patient reported her pre-fx. weight was 168#; [facility] assumed she had post-op fluid retention) 11-23-16 175.4# 11-30-16 181# 12-14-16 180.6# 12-18-16--DC'd home, but RN reported she still had 3+ pitting edema Pt. was admitted to the hospital yesterday weighing 152#, validating a 28 lb. weight loss in the past 2 months (15%) even in the presence of 3-4+ pitting edema, which is concerning. Lab results for medical workup are not yet available. Pt. has access to food at home, at least for one meal/day, though it's possible that she has inadequate intake at supper due to some dysphagia and weakness. As noted previously, meats, fruits and vegetables are more difficult for her to chew, which are nutrient-dense and put her at-risk for deficiencies. While it is good that she is already receiving Meals on Wheels, it may not be enough and patient may benefit from closer supervision with meals, whether that comes through Home Health, or family assistance, or move to a NH. Will discuss with multidisciplinary team re: plan of care.
--- NOTE | 2017-02-19 12:38 | Progress Note (E) ---
Progress Note SUBJECTIVE Overnight, no major issues. Afebrile and other vitals stable. CBC stable. Chemistry notable for mild AST and CPK elevation concerning for mild muscle breakdown. Urine culture growing > 100,000 cfu/ml gram negative bacillus. Hepatitis panel pending but expected to be negative. On exam, resting in bed. Considerably more alert and interactive. Discussed findings, plan of care. OBJECTIVE Vital Signs Date Time Temp Pulse Resp B/P Pulse Ox O2 Delivery O2 Flow Rate FiO2 02/19/17 12:04 98.6 80 20 122/57 96 Room air I & O 02/18/17 02/19/17 Cumulative From/Thru 19:00 07:00 02/18/17 11:55 - 02/19/17 06:20 Intake Total 674 ml 674 ml Output Total 1750 ml 1750 ml Balance -1076 ml -1076 ml GEN: Mental status continues to improve. HEENT:Eyes closed. Mild eyelid swelling. On exam, clear sclerae, Arcus senilis. EOMI. Somewhat dry oral mucosa. CV: RRR S1 S2 audible with III/ systolic crescendo murmur loudest at LSB. LUNGS: CTA B though mildly diminished. No R/R/W. ABD: Soft, NT/ND with normal bowel sounds. EXTR: 3+ BLE edema from feet to knees. Bilateral BLE erythema with pebbling and chronic venous stasis changes. INTEG: Legs as described. Otherwise, age related changes and pallor. NEURO: Generalized weakness. Facial nerves seem generally weak though symmetric. Arm strength 3/5 bilaterally. Gait not assessed. No clonus. Normal patellar and ankle reflexes. Weight: 75 kg Lab-Past 14 Days, 35 Results 02/18/17 12:30: Acetaminophen Level < 10.0L, Alanine Aminotransferase (ALT/SGPT) 57, Albumin 3.7 , Albumin/Globulin Ratio 1.156, Alkaline Phosphatase 192H, Anion Gap 14.4, Aspartate Amino Transf (AST/SGOT) 85H, BUN/Creatinine Ratio 28H, Basophils # ( Auto) 0.0, Basophils (%) (Auto) 0, Blood Urea Nitrogen 24H, Calcium Level 10.6, Calcium/Ionized Calcium Ratio 4.8H, Calculated Osmolality 280, Carbon Dioxide Level 25, Chloride Level 108, Creatinine 0.87, Eosinophils # (Auto) 0.0, Eosinophils (%) (Auto) 1, Estimat Glomerular Filtration Rate 74.7, Estimated GFR (Non- 61.7, Glucose Level 100#, Hematocrit 39.50, Hemoglobin 12.7, Lymphocytes # (Auto) 1.2, Lymphocytes (%) (Auto) 18L, Mean Corpuscular Hemoglobin 28.7, Mean Corpuscular Hemoglobin Concent 32.2, Mean Corpuscular Volume 89, Mean Platelet Volume 9.9H, Monocytes # (Auto) 0.5, Monocytes (%) (Auto) 8, RI-Eaz-I-Type Natriuretic Peptide 210, Neutrophils # ( Auto) 4.9, Neutrophils (%) (Auto) 73H, Platelet Count 162, Potassium Level 4.5, Red Blood Count 4.43, Red Cell Distribution Width 16.0H, Sodium Level 143, Total Bilirubin 1.1H, Total Protein 6.9, White Blood Count 6.77 02/18/17 12:55: Urine Bacteria 4+H, Urine Bilirubin Negative, Urine Blood Trace-intactH, Urine Clarity Cloudy, Urine Collection Type Catheter, Urine Color Dark yellow, Urine Glucose (UA) Negative, Urine Ketones 1+H, Urine Leukocyte Esterase 1+H, Urine Microscopic RBC 5-10H, Urine Mucus Rare, Urine Nitrite PositiveH, Urine Protein 1+H, Urine Specific Derwood 1.025, Urine Squamous Epithelial Cells >100, Urine Urobilinogen 0.2, Urine WBC 10-20H, Urine pH 5.5, Volume Urine Centrifuged 12 ml 02/18/17 13:35: Urine Bacteria 4+H, Urine Bilirubin Negative, Urine Blood Trace-intactH, Urine Clarity Cloudy, Urine Collection Type Catheter, Urine Color Dark yellow, Urine Glucose (UA) Negative, Urine Ketones TraceH, Urine Leukocyte Esterase Negative, Urine Microscopic RBC 0-2, Urine Mucus Rare, Urine Nitrite PositiveH, Urine Protein TraceH, Urine Specific Derwood 1.025, Urine Squamous Epithelial Cells None, Urine Urobilinogen 0.2, Urine WBC 5-10H, Urine pH 5.5, Volume Urine Centrifuged <10ml unspun, Ur Tricyclic Antidepressants Screen Negative, Urine Amphetamines Screen Negative, Urine Barbiturates Screen Negative, Urine Benzodiazepines Screen Negative, Urine Cannabinoids Screen Negative, Urine Cocaine Screen Negative, Urine Methadone Screen Negative, Urine Methamphetamines Screen Negative, Urine Opiates Screen PositiveH, Urine Oxycodone Screen Negative, Urine Phencyclidine Screen Negative, Urine Propoxyphene Screen Negative 02/18/17 14:22: Lactic Acid Level 1.6 02/18/17 18:15: Ammonia 53.9H, C-Reactive Protein 2.60H, Erythrocyte Sedimentation Rate 16, Free Thyroxine (T4) Calculated 1.29, EI-Mwo-W-Type Natriuretic Peptide 333, Total Creatine Kinase 574*H, Vitamin D 1,25-Dihydroxy [Pending] 02/19/17 05:35: Total Creatine Kinase 560*H, Alanine Aminotransferase (ALT/SGPT) 58, Albumin 2.9 #L, Albumin/Globulin Ratio 1.035L, Alkaline Phosphatase 162H, Anion Gap 9.4, Aspartate Amino Transf (AST/SGOT) 96H, BUN/Creatinine Ratio 29H, Basophils # ( Auto) 0.0, Basophils (%) (Auto) 0, Blood Urea Nitrogen 20H, Calcium Level 9.7, Calcium/Ionized Calcium Ratio 4.8H, Calculated Osmolality 278L, Carbon Dioxide Level 26, Chloride Level 111H, Creatinine 0.70, Eosinophils # (Auto) 0.1, Eosinophils (%) (Auto) 1, Estimat Glomerular Filtration Rate 96.0, Estimated GFR (Non- 79.3, Glucose Level 86, Hematocrit 35.20, Hemoglobin 11.4L, Hepatitis A IgM Antibody [Pending], Hepatitis B Core IgM Antibody [ Pending], Hepatitis B Surface Antigen [Pending], Hepatitis C Antibody [Pending] , Lymphocytes # (Auto) 1.7, Lymphocytes (%) (Auto) 23, Mean Corpuscular Hemoglobin 28.9, Mean Corpuscular Hemoglobin Concent 32.4, Mean Corpuscular Volume 89, Mean Platelet Volume 10.3H, Monocytes # (Auto) 0.8, Monocytes (%) ( Auto) 10, Neutrophils # (Auto) 4.7, Neutrophils (%) (Auto) 65, Platelet Count 155, Potassium Level 3.8, Red Blood Count 3.95L, Red Cell Distribution Width 16.0H, Sodium Level 143, Total Bilirubin 1.0, Total Protein 5.7L, White Blood Count 7.30 MICRO 02/18 Blood culture PENDING 02/18 Urine culture > 100,000 cfu/ml gram negative bacilli. 02/18 Hepatitis panel PENDING IMAGING 02/18/17 CT HEAD WO CLINICAL INDICATION: Patient with weakness. Fell. Patient found unresponsive. EXAM: Axial CT scan of brain performed without IV contrast. Coronal sagittal reformatted images are created. COMPARISON: Head CT without IV contrast dated 02/03/2017. FINDINGS: There is no evidence of acute cerebral infarct, intracranial hemorrhage, or gross mass effect. Again seen patchy confluent areas of low-attenuation white matter changes seen throughout both cerebral hemispheres, likely representing chronic small vessel ischemic disease and leukoaraiosis. There is normal bee-white matter distinction. The brain parenchymal volume appears appropriate for patient's age. There is no significant midline shift or herniation. There is no evidence of hydrocephalus. The basal cisterns are unremarkable. The skull, extracranial soft tissue, and orbits are unremarkable. There is mild mucosal thickening involving the ethmoid sinus. IMPRESSION: Stable CT scan of brain with no evidence of interval acute intracranial process. REFERENCE 02/03/17 CHEST 1 VIEW, AP/PA ONLY* INDICATION: Chest pain and dyspnea. DISCUSSION: Single portable upright view of the chest was obtained, comparison . Cardiomegaly is stable. Small left pleural effusion appears new. Patchy opacity within the medial left lung base could represent atelectasis and/ or pneumonia. Mildly elevated right hemidiaphragm is stable. No osseous abnormality. IMPRESSION: 1. Small left pleural effusion. 2. Cardiomegaly. 3. Left lung base opacities. ASSESSMENT Radha Abarca is a 86 year old female admitted from ED 02/18 with encephalopathy and urinary tract infection. She was also found to have hyperammonemia and she has chronic BLE edema. She has had a significant decline in function and ability to provide self-care. She has several chronic problems. PLAN * Encephalopathy: Likely due to UTI but ammonia was elevated of uncertain cause. TSH normal. Treat UTI. Avoid sedatives and narcotics. OT eval and treat. Consider MRI if not improving. * Complicated UTI: Urine and blood cultures pending. Got ciprofloxacin in ED, but because of encephalopathy, switched to ceftriaxone. (PCN allergy noted.) Treat for 5 days minimum. * Fatigue, Unintentional Weight Loss: Broad differential. TSH, FT4 pending. ESR and CRP were not significantly elevated. Treat UTI. [employer] consult. * BLE Edema: Likely lymphedema. No prior history of heart failure. NT-pro-BNP not elevated. Check for prior echo, new echo. Hold furosemide for now. JANAE mehta. * Heart Murmur, Possible Heart Failure: Check NT-pro-BNP. Check echo. nt * Dehydration: On the basis of labs, exam. NS bolus given in ED. Additional liter maintenance. I&O, daily weight. * Medication Non-adherence: Reportedly taking medications at home incorrectly and inconsistently. Likely needs placement, per PCP and family. * Elevated CPK, Elevated AST: Likely due to recent immobility cause mild rhabdo. Monitor trend. * Hyperammonemia: Uncertain cause. Review home medications for possible causes. Check hepatitis panel. Check abdominal sono. Gave lactulose and had 4 BM. * Deconditioning: PT/OT eval and treat. * F/E/N: Regular diet. IVF as above. Peripheral IV. I&O, daily weight. * Prophylaxis: Enoxaparin * Code Status: DNR. Discussed at time of admission. * Dispo: Inpatient expecting 3-day stay minimum. Treating UTI. Workup pending for liver disease. Would probably benefit from skilled care. Probably needs long -term placement. CHRONIC ISSUES * HTN: Lisinopril, amlodipine * Chronic Pain, OA: Hold narcotics due to encephalopathy * Hypothyroidism: Check TSH. Levothyroxine. * HLD: Colesevelam * GERD: Pantoprazole (sub for omeprazole). * History of TIA, CVA: Aspirin THELMA GARZA MD Feb 19, 2017 12:38
--- NOTE | 2017-02-19 14:00 | NUR ---
RECTAL BLEEDING NOTED WHEN UP TO COMMODE. SCANT AMT OF STOOL. 75 ML RECTAL BLEEDING . ACTIVE BLEEDING NOTED FROM RIGHT RECTAL HEMORRHOID. DR. GARZA CAME TO ROOM TO SEE BLEEDING.
--- NOTE | 2017-02-19 14:35 | PT Daily Note Inpatient (E) ---
PT Daily Treatment Service Date/Time 02/19/17, 14:34 Medical Diagnosis: (1) Weakness ICD Code: R53.1 (2) Malaise ICD Code: R53.81 (3) Encephalopathy ICD Code: G93.40 (4) UTI (urinary tract infection) ICD Code: N39.0 Physical Therapy: (1) Weakness ICD Code: R53.1 (2) Malaise ICD Code: R53.81 Precaution/Isolation: Standard Precautions Resuscitation Status: Do Not Resuscitate Fall Level: High Risk 51 or greater Subjective Pt resting in bed. Opened eyes briefly. Agreed to therapy even though she was ready for a nap. Oxygen Delivery: Room air Treatments Sit, Stand, Supine: Supine Extremity: Both Lower Extremity Assistance: AAROM Repetition: 1 x 15 Exercise: AP, GS, Heel Slides, Hip Abduction, SLR Transfers Sit-Supine: Moderate Assistance (to lift legs.) Sitting Edge of Bed: Supervision or setup Supine-Sit: Minimal Assistance Sit-Stand from bed: Contact Guard Assist Stand-Sit: Contact Guard Assist Gait Ambulation: Contact Guard Assist Distance Walked: 20 feet Assistive Device: FWW Gait Description: Decreased Malissa, Slow, Short Step Length, Flexed Trunk Gait Training: Limitations: Fatigue Education/Plan Assessment Tolerated ex well but fatigued afterward. Plan Patient will be seen: Daily Thursday-Thursday Coding Time In: 14:10 Time Out: 14:35 Total Minutes: 25 Charges: 16294 Exercise Therp 15 m (25 minutes) Ryan Barahona PTA Feb 19, 2017 14:35
[2017-02-19 16:31] VITALS: BP 144/66
[2017-02-19] MEDS: HYDROCORTISONE 2.5% TOP SCH (17:31)
[2017-02-19] MEDS: CALCIUM CARBONATE 500 MG PO SCH (17:33)
[2017-02-19] MEDS: MULTIVITAMIN W/MINERALS (THERAGRAN M) TABLET PO SCH (17:33)
[2017-02-19] MEDS: cefTRIAXone SODIUM 1,000 MG in SODIUM CHLORIDE 50 ML IV SCH (17:38)
--- NOTE | 2017-02-19 18:40 | NUR ---
REQUEST NORCO AT HS. INFORMED HAS IBUPROFEN OR TYLENOL AVAILABLE. PATIENT STATES SHE WANTS THE NORCO INSTEAD. OBTAINED ORDER FROM DR. GARZA.
[2017-02-19 19:21] LABS: HEPATITIS A ANTIBODY IGM Negative; HEPATITIS B CORE ABY IGM Negative; HEPATITIS B SURFACE ANTIGEN C Negative
[2017-02-19] MEDS: HYDROcodone/APAP 5 MG/325 MG (NORCO) TAB PO PRN (19:47)
--- NOTE | 2017-02-19 19:54 | NUR ---
Requests Newfolden at this time for hip pain 06/04. Other HS meds given early as patient is ready to go to sleep.
[2017-02-20 00:19] VITALS: BP 128/55
[2017-02-20] MEDS: LEVOTHYROXINE 50 MCG (LEVOTHROID) TABLET PO SCH ×2 (06:15→10:32)
[2017-02-20 06:25] LABS: ALBUMIN 2.3 g/dL (3.4-5.0); CALCULATED IONIZED CALCIUM 5.1 mg/dL (3.8-4.6); TOTAL PROTEIN 4.7 g/dL (6.4-8.5)
--- NOTE | 2017-02-20 06:37 | NUR ---
Patient rests in bed throughout night without needs, remains NPO since Midnight (00) for ultrasound this AM. Reports minimal pain throughout night. No needs at this time.
[2017-02-20 07:23] VITALS: BP 125/49
--- NOTE | 2017-02-20 08:48 | NUR ---
Pt resting quietly in bed, alert & oriented, speech clear. Denies pain or dyspnea at present. Lungs clear, no wheezing or crackles heard. Murmur auscultated, regular heart rhythm. Pt awaiting abdominal sono this morning, scheduled for approx 10am, then will be allowed to resume diet and will give AM meds. Call light in reach. Will round frequently for cares.
[2017-02-20] MEDS: HYDROCORTISONE 2.5% TOP SCH ×3 (09:00→17:55)
[2017-02-20] MEDS: OMEGA-3 FATTY ACIDS (FISH OIL) 500 MG CAPSULE PO SCH ×2 (10:32→20:08)
[2017-02-20] MEDS: LIDOCAINE (LIDODERM) 5% PATCH TOP SCH (10:32)
[2017-02-20] MEDS: PANTOPRAZOLE 40 MG (PROTONIX) TAB PO SCH (10:32)
[2017-02-20] MEDS: lisINopril 20 MG (PRINIVIL) TABLET PO SCH (10:32)
[2017-02-20] MEDS: CHOLECALCIFEROL 1000 INT UNITS (VITAMIN D3) TABLET PO SCH ×2 (10:32→20:08)
[2017-02-20] MEDS: VIT A,C & E/LUTEIN/MINERALS (I-VITE) TABLET PO SCH ×2 (10:32→20:08)
[2017-02-20] MEDS: COLESEVELAM 625 MG PO SCH ×2 (10:33→17:54)
[2017-02-20] MEDS: amLODIPine 5 MG (NORVASC) TAB PO SCH (10:33)
[2017-02-20] MEDS: NS FLUSH 3 ML DAILY IV SCH (10:33)
--- NOTE | 2017-02-20 10:39 | NUR ---
Abdominal sono completed, orders resumed for diet and will give AM meds.
--- NOTE | 2017-02-20 10:40 | Diagnostic Imaging Report ---
PROCEDURE: US abdomen complete. TECHNIQUE: Multiple real-time grayscale images were obtained over the abdomen in various projections. Exam was technically difficult because of bowel gas. INDICATION: Elevated serum ammonia. AVAILABLE COMPARISONS: None. The liver outline is lobulated. It is not enlarged. The length is 14 cm. Color Doppler imaging of the main portal vein was present, and satisfactory flow in the main portal vein could not be demonstrated. The gallbladder is surgically absent. Bile ducts are not dilated. CBD is normal at 3 mm. Only the body of the pancreas was visualized. The main pancreatic duct was not dilated. We cannot see all of the body. The tail and head were obscured by bowel gas. Spleen is not enlarged with no obvious focal lesion. Aorta was negative although the bifurcation of the aorta could not be satisfactorily seen. Visualized inferior vena cava is negative. The kidneys are negative. Mild/ moderate perihepatic ascites is present. IMPRESSION: Hepatic findings consistent with cirrhosis. No flow could be detected in the main portal vein with color Doppler imaging. This could be artifactual related to technical factors or related to slow flow or thrombosis. Perihepatic ascites. Dictated by: Dictated on workstation # [id number]
--- NOTE | 2017-02-20 12:23 | PT Daily Note Inpatient (E) ---
PT Daily Treatment Service Date/Time 02/20/17, 12:18 Medical Diagnosis: (1) Weakness ICD Code: R53.1 (2) Malaise ICD Code: R53.81 (3) Encephalopathy ICD Code: G93.40 (4) UTI (urinary tract infection) ICD Code: N39.0 Physical Therapy: (1) Weakness ICD Code: R53.1 (2) Malaise ICD Code: R53.81 Precaution/Isolation: Standard Precautions Resuscitation Status: Do Not Resuscitate Fall Level: High Risk 51 or greater Subjective Pt states she got her breakfast late after having tests this morning. Agrees to therapy. Oxygen Delivery: Room air Treatments Sit, Stand, Supine: Supine Extremity: Both Lower Extremity Assistance: AAROM, AROM Repetition: 1 x 15 Exercise: AP, QS, Heel Slides, Hip Abduction, SLR Transfers Supine-Sit: Contact Guard Assist Sit-Stand from bed: Contact Guard Assist (cues to push off with hands) Stand-Sit: Contact Guard Assist Gait Ambulation: Contact Guard Assist Distance Walked: 110 feet Assistive Device: FWW Gait Description: Decreased Malissa, Slow, Short Step Length, Flexed Trunk Gait Training: Limitations: Fatigue Education/Plan Assessment Increased activity tolerance today. Response to Treatment: Improving Plan Patient will be seen: Daily Thursday-Thursday Coding Time In: 11:51 Time Out: 12:19 Total Minutes: 28 Charges: 07817 Exercise Therp 15 m (28 minutes) Ryan Barahona ASSISTANT WINEMAKER Feb 20, 2017 12:23
[2017-02-20] MEDS ORDERED: FUROSEMIDE 100 MG/10 ML (LASIX) VIAL IV ONE (15:30)
[2017-02-20] MEDS: SPIRONOLACTONE 25 MG (ALDACTONE) TABLET PO SCH (15:30)
--- NOTE | 2017-02-20 16:02 | Progress Note (E) ---
Progress Note SUBJECTIVE Vitals stable. Has had numerous BM. Had abdominal sono this morning. Details as noted below. Updated her and family on findings, plan of care. Uncertain cause of cirrhosis... she was never a drinker. Could be due to fatty liver disease or autoimmune. Further lab workup ordered. OBJECTIVE Vital Signs Date Time Temp Pulse Resp B/P Pulse Ox O2 Delivery O2 Flow Rate FiO2 02/20/17 07:23 97.8 72 24 125/49 95 Room air I & O 02/19/17 02/20/17 Cumulative From/Thru 19:00 07:00 02/18/17 11:55 - 02/20/17 06:08 Intake Total 589 ml 300 ml 1563 ml Output Total 100 ml 850 ml 2700 ml Balance 489 ml -550 ml -1137 ml GEN: Mental status continues to improve. HEENT: EOMI, clear sclerae, arcus senilis. Somewhat dry oral mucosa. CV: RRR S1 S2 audible with III/ systolic crescendo murmur loudest at LSB. LUNGS: CTA B though mildly diminished. No R/R/W. ABD: Soft, NT/ND with normal bowel sounds. EXTR: 3+ BLE edema from feet to knees. Bilateral BLE erythema with pebbling and chronic venous stasis changes. INTEG: Legs as described. Otherwise, age related changes and pallor. NEURO: Generalized weakness. Facial expression more full, symmetric. Arm strength 4/5 bilaterally. Shuffling gait with PT. No clonus. Normal patellar and ankle reflexes. Weight: 69.3 kg (75 kg on admit) Lab-Past 14 Days, 35 Results 02/18/17 12:30: Acetaminophen Level < 10.0L, Alanine Aminotransferase (ALT/SGPT) 57, Albumin 3.7 , Albumin/Globulin Ratio 1.156, Alkaline Phosphatase 192H, Anion Gap 14.4, Aspartate Amino Transf (AST/SGOT) 85H, BUN/Creatinine Ratio 28H, Basophils # ( Auto) 0.0, Basophils (%) (Auto) 0, Blood Urea Nitrogen 24H, Calcium Level 10.6, Calcium/Ionized Calcium Ratio 4.8H, Calculated Osmolality 280, Carbon Dioxide Level 25, Chloride Level 108, Creatinine 0.87, Eosinophils # (Auto) 0.0, Eosinophils (%) (Auto) 1, Estimat Glomerular Filtration Rate 74.7, Estimated GFR (Non- 61.7, Glucose Level 100#, Hematocrit 39.50, Hemoglobin 12.7, Lymphocytes # (Auto) 1.2, Lymphocytes (%) (Auto) 18L, Mean Corpuscular Hemoglobin 28.7, Mean Corpuscular Hemoglobin Concent 32.2, Mean Corpuscular Volume 89, Mean Platelet Volume 9.9H, Monocytes # (Auto) 0.5, Monocytes (%) (Auto) 8, BD-Efi-J-Type Natriuretic Peptide 210, Neutrophils # ( Auto) 4.9, Neutrophils (%) (Auto) 73H, Platelet Count 162, Potassium Level 4.5, Red Blood Count 4.43, Red Cell Distribution Width 16.0H, Sodium Level 143, Total Bilirubin 1.1H, Total Protein 6.9, White Blood Count 6.77 02/18/17 12:55: Urine Bacteria 4+H, Urine Bilirubin Negative, Urine Blood Trace-intactH, Urine Clarity Cloudy, Urine Collection Type Catheter, Urine Color Dark yellow, Urine Glucose (UA) Negative, Urine Ketones 1+H, Urine Leukocyte Esterase 1+H, Urine Microscopic RBC 5-10H, Urine Mucus Rare, Urine Nitrite PositiveH, Urine Protein 1+H, Urine Specific [place] 1.025, Urine Squamous Epithelial Cells >100, Urine Urobilinogen 0.2, Urine WBC 10-20H, Urine pH 5.5, Volume Urine Centrifuged 12 ml 02/18/17 13:35: Urine Bacteria 4+H, Urine Bilirubin Negative, Urine Blood Trace-intactH, Urine Clarity Cloudy, Urine Collection Type Catheter, Urine Color Dark yellow, Urine Glucose (UA) Negative, Urine Ketones TraceH, Urine Leukocyte Esterase Negative, Urine Microscopic RBC 0-2, Urine Mucus Rare, Urine Nitrite PositiveH, Urine Protein TraceH, Urine Specific [place] 1.025, Urine Squamous Epithelial Cells None, Urine Urobilinogen 0.2, Urine WBC 5-10H, Urine pH 5.5, Volume Urine Centrifuged <10ml unspun, Ur Tricyclic Antidepressants Screen Negative, Urine Amphetamines Screen Negative, Urine Barbiturates Screen Negative, Urine Benzodiazepines Screen Negative, Urine Cannabinoids Screen Negative, Urine Cocaine Screen Negative, Urine Methadone Screen Negative, Urine Methamphetamines Screen Negative, Urine Opiates Screen PositiveH, Urine Oxycodone Screen Negative, Urine Phencyclidine Screen Negative, Urine Propoxyphene Screen Negative 02/18/17 14:22: Lactic Acid Level 1.6 02/18/17 18:15: Ammonia 53.9H, C-Reactive Protein 2.60H, Erythrocyte Sedimentation Rate 16, Free Thyroxine (T4) Calculated 1.29, XE-Teh-E-Type Natriuretic Peptide 333, Total Creatine Kinase 574*H, Vitamin D 1,25-Dihydroxy [Pending] 02/19/17 05:35: Total Creatine Kinase 560*H, Alanine Aminotransferase (ALT/SGPT) 58, Albumin 2.9 #L, Albumin/Globulin Ratio 1.035L, Alkaline Phosphatase 162H, Anion Gap 9.4, Aspartate Amino Transf (AST/SGOT) 96H, BUN/Creatinine Ratio 29H, Basophils # ( Auto) 0.0, Basophils (%) (Auto) 0, Blood Urea Nitrogen 20H, Calcium Level 9.7, Calcium/Ionized Calcium Ratio 4.8H, Calculated Osmolality 278L, Carbon Dioxide Level 26, Chloride Level 111H, Creatinine 0.70, Eosinophils # (Auto) 0.1, Eosinophils (%) (Auto) 1, Estimat Glomerular Filtration Rate 96.0, Estimated GFR (Non- 79.3, Glucose Level 86, Hematocrit 35.20, Hemoglobin 11.4L, Hepatitis A IgM Antibody Negative, Hepatitis B Core IgM Antibody Negative , Hepatitis B Surface Antigen Negative, Hepatitis C Antibody Negative, Lymphocytes # (Auto) 1.7, Lymphocytes (%) (Auto) 23, Mean Corpuscular Hemoglobin 28.9, Mean Corpuscular Hemoglobin Concent 32.4, Mean Corpuscular Volume 89, Mean Platelet Volume 10.3H, Monocytes # (Auto) 0.8, Monocytes (%) ( Auto) 10, Neutrophils # (Auto) 4.7, Neutrophils (%) (Auto) 65, Platelet Count 155, Potassium Level 3.8, Red Blood Count 3.95L, Red Cell Distribution Width 16.0H, Sodium Level 143, Thyroid Stimulating Hormone (TSH) 0.92#, Total Bilirubin 1.0, Total Protein 5.7L, White Blood Count 7.30 02/19/17 14:50: Activated Partial Thromboplast Time 39.9H, Prothromb Time International Ratio 1.2, Prothrombin Time 13.7H 02/20/17 05:50: Ammonia 19.5, Total Creatine Kinase 203#H, Alanine Aminotransferase (ALT/SGPT) 48, Albumin 2.3#L, Albumin/Globulin Ratio 0.958L, Alkaline Phosphatase 131H, Anion Gap 7.0, Aspartate Amino Transf (AST/SGOT) 74H, BUN/Creatinine Ratio 25H, Blood Urea Nitrogen 18, Calcium Level 9.3, Calcium/Ionized Calcium Ratio 5.1H, Calculated Osmolality 273L, Carbon Dioxide Level 26, Chloride Level 111H, Creatinine 0.71, Estimat Glomerular Filtration Rate 94.4, Estimated GFR (Non- 78.1, Glucose Level 92, Potassium Level 3.6, Sodium Level 140, Total Bilirubin 0.8, Total Protein 4.7L MICRO 02/18 Blood culture Negative to date. 02/18 Hepatitis panel Negative SPEC #: [id number] SAMANTHA: 02/18/17 STATUS: RES REQ #: [id number] RECD: 02/18/17-[address]: NICHOL HENRY MD Order Location: ED SOURCE: URINE DESCRIPTION: U CATH Procedure Result Verified URINE CULTURE Preliminary Verified 02/20/17-0554 AM Source: URINE / STRAIGHT CATH, IN/OUT Order Location: EMERGENCY Site: U CATH Received : 02/18/17 17:47 Order#: [id number] Urine Culture PRELIM 02/20/17 05:52 S Klebsiella pneumoniae >100,000 cfu/ml Streptococcus species 50-100,000 cfu/ml K. pneumo. Antibiotic ERICK INT Ampicillin 16 R Ampicillin/sulbactam 4 S Cefazolin <=4 S Ceftriaxone <=1 S Ciprofloxacin <=0.25 S Gentamicin <=1 S Nitrofurantoin 32 S Trimethoprim/Sulfa <=20 S S=SUSCEPTIBLE I=INTERMEDIATE R=RESISTANT S-DD= SUSCEPTIBLE, DOSE DEPENDENT IMAGING 02/20/17 ECHO: PENDING 02/20/17 US ABDOMEN, COMPLETE PROCEDURE: US abdomen complete. TECHNIQUE: Multiple real-time grayscale images were obtained over the abdomen in various projections. Exam was technically difficult because of bowel gas. INDICATION: Elevated serum ammonia. AVAILABLE COMPARISONS: None. The liver outline is lobulated. It is not enlarged. The length is 14 cm. Color Doppler imaging of the main portal vein was present, and satisfactory flow in the main portal vein could not be demonstrated. The gallbladder is surgically absent. Bile ducts are not dilated. CBD is normal at 3 mm. Only the body of the pancreas was visualized. The main pancreatic duct was not dilated. We cannot see all of the body. The tail and head were obscured by bowel gas. Spleen is not enlarged with no obvious focal lesion. Aorta was negative although the bifurcation of the aorta could not be satisfactorily seen. Visualized inferior vena cava is negative. The kidneys are negative. Mild/ moderate perihepatic ascites is present. IMPRESSION: Hepatic findings consistent with cirrhosis. No flow could be detected in the main portal vein with color Doppler imaging. This could be artifactual related to technical factors or related to slow flow or thrombosis. Perihepatic ascites. 02/18/17 CT HEAD WO CLINICAL INDICATION: Patient with weakness. Fell. Patient found unresponsive. EXAM: Axial CT scan of brain performed without IV contrast. Coronal sagittal reformatted images are created. COMPARISON: Head CT without IV contrast dated 02/03/2017. FINDINGS: There is no evidence of acute cerebral infarct, intracranial hemorrhage, or gross mass effect. Again seen patchy confluent areas of low-attenuation white matter changes seen throughout both cerebral hemispheres, likely representing chronic small vessel ischemic disease and leukoaraiosis. There is normal bee-white matter distinction. The brain parenchymal volume appears appropriate for patient's age. There is no significant midline shift or herniation. There is no evidence of hydrocephalus. The basal cisterns are unremarkable. The skull, extracranial soft tissue, and orbits are unremarkable. There is mild mucosal thickening involving the ethmoid sinus. IMPRESSION: Stable CT scan of brain with no evidence of interval acute intracranial process. REFERENCE 02/03/17 CHEST 1 VIEW, AP/PA ONLY* INDICATION: Chest pain and dyspnea. DISCUSSION: Single portable upright view of the chest was obtained, comparison . Cardiomegaly is stable. Small left pleural effusion appears new. Patchy opacity within the medial left lung base could represent atelectasis and/ or pneumonia. Mildly elevated right hemidiaphragm is stable. No osseous abnormality. IMPRESSION: 1. Small left pleural effusion. 2. Cardiomegaly. 3. Left lung base opacities. ASSESSMENT Radha Abarca is a 86 year old female admitted from ED 02/18 with encephalopathy and a significant decline in function and ability to provide self-care. She was found to have urinary tract infection. She was also found to have hyperammonemia and she has chronic BLE edema. Further workup revealed cirrhosis but cause is uncertain. She has several chronic problems. PLAN * Hepatic Encephalopathy: Encephalopathy attributed initially to UTI but ammonia was elevated. Improved with lactulose. TSH normal. Treated UTI. Avoid sedatives and narcotics. OT eval and treat. * Complicated UTI due to Klebsiella pneumoniae: Got ciprofloxacin in ED, but because of encephalopathy, switched to ceftriaxone. (PCN allergy noted.) Treat for 5 days minimum. * Fatigue, Unintentional Weight Loss: Broad differential. Due to newly- identified liver disease? TSH, FT4 normal. ESR and CRP were not significantly elevated. Treated UTI. Logistics Manager consult. * BLE Edema: Likely lymphedema, liver disease. No prior history of heart failure. NT-pro-BNP not elevated. Check for prior echo, new echo. JANAE mehta. Started furosemide and spironolactone 02/20. * Heart Murmur, Possible Heart Failure: Check NT-pro-BNP. Check echo. * Dehydration: Resolved. On the basis of labs, exam. NS bolus given in ED. Additional liter maintenance. I&O, daily weight. * Medication Non-adherence: Reportedly taking medications at home incorrectly and inconsistently. Likely needs placement, per PCP and family. * Elevated CPK, Elevated AST: Resolving. Likely due to recent immobility cause mild rhabdo. Monitor trend. * Chronic Liver Disease, Hyperammonemia: Cirrhosis noted on sono. Hepatitis panel negative. Autoimmune workup pending. [id number], ferritin, iron profile pending. Noted she was taking too much acetaminophen at home (from too much [place]) so tylenol toxicity also possible. Ammonia improved with lactulose. After discharge, likely refer to GI for further management. * Rectal hemorrhoid: Perhaps related to cirrhosis. Anusol. * Rectal Bleeding: From hemorrhoid. Monitor Hgb. * Deconditioning: PT/OT eval and treat. * F/E/N: 2 gram sodium diet. Peripheral IV. I&O, daily weight. * Prophylaxis: Enoxaparin * Code Status: DNR. Discussed at time of admission. * Dispo: Inpatient. Treating UTI. Workup pending for liver disease. Would probably benefit from skilled care. Probably needs long-term placement. Needs GI referral. CHRONIC ISSUES * HTN: Lisinopril, amlodipine * Chronic Pain, OA: Hold narcotics due to encephalopathy * Hypothyroidism: Check TSH. Levothyroxine. * HLD: Colesevelam * GERD: Pantoprazole (sub for omeprazole). * History of TIA, CVA: Aspirin THELMA GARZA MD Feb 20, 2017 15:02
[2017-02-20] MEDS: CALCIUM CARBONATE 500 MG PO SCH (16:40)
[2017-02-20] MEDS: MULTIVITAMIN W/MINERALS (THERAGRAN M) TABLET PO SCH (16:40)
[2017-02-20] MEDS: POTASSIUM CHLORIDE ER 10 MEQ CAPSULE PO SCH (17:54)
[2017-02-20] MEDS: cefTRIAXone SODIUM 1,000 MG in SODIUM CHLORIDE 50 ML IV SCH (17:55)
--- NOTE | 2017-02-20 17:58 | OT Daily Note Inpatient (E) ---
OT Daily Treatment Service Date/Time 02/20/17, 17:51 Primary Diagnosis: (1) Weakness ICD Code: R53.1 (2) Malaise ICD Code: R53.81 (3) Encephalopathy ICD Code: G93.40 (4) UTI (urinary tract infection) ICD Code: N39.0 Treatment Diagnosis: Precaution/Isolation: Standard Precautions Fall Level: High Risk 51 or greater Resuscitation Status: Do Not Resuscitate Current Activity: Agrees to participate, In bed General Informantion split tx I was so hungry today I ate everything on my plate Pain Level: 0 Oxygen Needed: Room air Current Function Assessment Neurological Balance: Sits w/o support Endurance Activity Endurance: Fair Bed Mobility/Transfers Supine from Sit: Moderate assist Sit to Stand: Minimum assist Chair Transfer: CGA Sitting Balance: WFL Dressing Dressing Lower Body w Assist: Foot in pant leg Comment Pt was unable to bend over to don/doff brief Toileting Toilet Hygiene: Maximum Assist Clothing Gage-Pants Down : Clothing Management-Pants Down: CGA Clothing Gage-Pants Up : Clothing Management-Pants Up: CGA Toilet Transfer Ability: CGA Treatments Strengthening Exercise Upper Extremity Strength Exerc : Upper Extremity: Bilateral Repetitions: 10 X 1 Amount of Resistance: Yellow (Pt sat at EOB for 11 mintues for B UE PRE to increase strength for ADLs) Education/Assessment Treatment Tolerance: Gina trmnt w/o complaints Pt tolerated tx well but weill benefit from futher Ot for strengthening and activity tolerance CPT/G Codes Time In: 1321 Time Out: 1630 Total Minutes: 31 CPT Codes: 67847 Exercise Ther (15), 10768 ADL EA (16) Marie Oquendo Feb 20, 2017 17:58
[2017-02-20] MEDS: HYDROcodone/APAP 5 MG/325 MG (NORCO) TAB PO PRN (20:08)
[2017-02-20] MEDS: LIDOCAINE PATCH REMOVAL TOP SCH (20:08)
[2017-02-20 21:05] LABS: IRON 40 ug/dL (50-170); UNBOUND IRON CONTENT 142 ug/dl (126-382)
[2017-02-21 00:14] VITALS: BP 117/53
[2017-02-21 06:26] LABS: ALBUMIN 2.4 g/dL (3.4-5.0); ANION GAP 7.3 MEQ/L (3-15)
--- NOTE | 2017-02-21 06:43 | NUR ---
Patient rests in bed throughout night without needs. Up to commode with one assist. No needs at this time.
--- NOTE | 2017-02-21 07:35 | NUR ---
Patient sitting up at edge of bed drinking coffee upon shift assessment. Alert and oriented X3. Denies pain or distress. Respirations even and non-labored on roomair. Lung sounds CTAB. HR RRR. BLE with 1+ pitting edema and erythema noted. Will apply JANAE hose after bed bath. Updated on plan of care for shift including antibiotic schedule and calling for assistance with ambulation. Call light in reach.
[2017-02-21 07:59] VITALS: BP 105/54
[2017-02-21] MEDS: SPIRONOLACTONE 25 MG (ALDACTONE) TABLET PO SCH (08:55)
[2017-02-21] MEDS: POTASSIUM CHLORIDE ER 10 MEQ CAPSULE PO SCH ×2 (08:55→18:12)
[2017-02-21] MEDS: COLESEVELAM 625 MG PO SCH ×2 (08:55→18:13)
[2017-02-21] MEDS: lisINopril 20 MG (PRINIVIL) TABLET PO SCH (08:55)
[2017-02-21] MEDS: FUROSEMIDE 20 MG (LASIX) TAB PO SCH (08:55)
[2017-02-21] MEDS: PANTOPRAZOLE 40 MG (PROTONIX) TAB PO SCH (08:56)
[2017-02-21] MEDS: amLODIPine 5 MG (NORVASC) TAB PO SCH (08:56)
[2017-02-21] MEDS: NS FLUSH 3 ML DAILY IV SCH (08:56)
[2017-02-21] MEDS: LIDOCAINE (LIDODERM) 5% PATCH TOP SCH (08:56)
[2017-02-21] MEDS: OMEGA-3 FATTY ACIDS (FISH OIL) 500 MG CAPSULE PO SCH ×2 (08:56→20:17)
[2017-02-21] MEDS: CHOLECALCIFEROL 1000 INT UNITS (VITAMIN D3) TABLET PO SCH ×2 (08:56→20:11)
[2017-02-21] MEDS: VIT A,C & E/LUTEIN/MINERALS (I-VITE) TABLET PO SCH ×2 (08:56→20:11)
[2017-02-21] MEDS: HYDROCORTISONE 2.5% TOP SCH ×3 (09:18→18:13)
--- NOTE | 2017-02-21 15:00 | Progress Note (E) ---
Progress Note SUBJECTIVE Overnight, no major issues. Vitals stable.Had another BM. Alert and oriented. Tolerating furosemide. Gradual weight loss noted. K mildly low at 3.4. Otherwise , chemistry stable. Liver tests still pending. Iron and ferritin were not elevated. Urine culture updated as noted, showing Klebsiella pneumoniae as well as Enterococcus faecium. Mentation has improved so best option is to switch back to quinolone based on C&S. OBJECTIVE Vital Signs Date Time Temp Pulse Resp B/P Pulse Ox O2 Delivery O2 Flow Rate FiO2 02/21/17 07:59 97.7 78 18 105/54 96 Room air I & O 02/20/17 02/21/17 Cumulative From/Thru 19:00 07:00 02/18/17 11:55 - 02/21/17 06:23 Intake Total 120 ml 800 ml 2483 ml Output Total 400 ml 1800 ml 4900 ml Balance -280 ml -1000 ml -2417 ml GEN: Mental status continues to improve. HEENT: EOMI, clear sclerae, arcus senilis. Somewhat dry oral mucosa. CV: RRR S1 S2 audible with III/ systolic crescendo murmur loudest at LSB. LUNGS: CTA B though mildly diminished. No R/R/W. ABD: Soft, NT/ND with normal bowel sounds. EXTR: 3+ BLE edema from feet to knees. Bilateral BLE erythema with pebbling and chronic venous stasis changes. INTEG: Legs as described. Otherwise, age related changes and pallor. NEURO: Generalized weakness. Facial expression more full, symmetric. Arm strength 4/5 bilaterally. Shuffling gait with PT. No clonus. Normal patellar and ankle reflexes. Weight: 68.9 kg (75 kg on admit) Lab-Past 14 Days, 35 Results 02/18/17 12:30: Acetaminophen Level < 10.0L, Alanine Aminotransferase (ALT/SGPT) 57, Albumin 3.7 , Albumin/Globulin Ratio 1.156, Alkaline Phosphatase 192H, Anion Gap 14.4, Aspartate Amino Transf (AST/SGOT) 85H, BUN/Creatinine Ratio 28H, Basophils # ( Auto) 0.0, Basophils (%) (Auto) 0, Blood Urea Nitrogen 24H, Calcium Level 10.6, Calcium/Ionized Calcium Ratio 4.8H, Calculated Osmolality 280, Carbon Dioxide Level 25, Chloride Level 108, Creatinine 0.87, Eosinophils # (Auto) 0.0, Eosinophils (%) (Auto) 1, Estimat Glomerular Filtration Rate 74.7, Estimated GFR (Non- 61.7, Glucose Level 100#, Hematocrit 39.50, Hemoglobin 12.7, Lymphocytes # (Auto) 1.2, Lymphocytes (%) (Auto) 18L, Mean Corpuscular Hemoglobin 28.7, Mean Corpuscular Hemoglobin Concent 32.2, Mean Corpuscular Volume 89, Mean Platelet Volume 9.9H, Monocytes # (Auto) 0.5, Monocytes (%) (Auto) 8, XR-Nah-L-Type Natriuretic Peptide 210, Neutrophils # ( Auto) 4.9, Neutrophils (%) (Auto) 73H, Platelet Count 162, Potassium Level 4.5, Red Blood Count 4.43, Red Cell Distribution Width 16.0H, Sodium Level 143, Total Bilirubin 1.1H, Total Protein 6.9, White Blood Count 6.77 02/18/17 12:55: Urine Bacteria 4+H, Urine Bilirubin Negative, Urine Blood Trace-intactH, Urine Clarity Cloudy, Urine Collection Type Catheter, Urine Color Dark yellow, Urine Glucose (UA) Negative, Urine Ketones 1+H, Urine Leukocyte Esterase 1+H, Urine Microscopic RBC 5-10H, Urine Mucus Rare, Urine Nitrite PositiveH, Urine Protein 1+H, Urine Specific Roma 1.025, Urine Squamous Epithelial Cells >100, Urine Urobilinogen 0.2, Urine WBC 10-20H, Urine pH 5.5, Volume Urine Centrifuged 12 ml 02/18/17 13:35: Urine Bacteria 4+H, Urine Bilirubin Negative, Urine Blood Trace-intactH, Urine Clarity Cloudy, Urine Collection Type Catheter, Urine Color Dark yellow, Urine Glucose (UA) Negative, Urine Ketones TraceH, Urine Leukocyte Esterase Negative, Urine Microscopic RBC 0-2, Urine Mucus Rare, Urine Nitrite PositiveH, Urine Protein TraceH, Urine Specific Roma 1.025, Urine Squamous Epithelial Cells None, Urine Urobilinogen 0.2, Urine WBC 5-10H, Urine pH 5.5, Volume Urine Centrifuged <10ml unspun, Ur Tricyclic Antidepressants Screen Negative, Urine Amphetamines Screen Negative, Urine Barbiturates Screen Negative, Urine Benzodiazepines Screen Negative, Urine Cannabinoids Screen Negative, Urine Cocaine Screen Negative, Urine Methadone Screen Negative, Urine Methamphetamines Screen Negative, Urine Opiates Screen PositiveH, Urine Oxycodone Screen Negative, Urine Phencyclidine Screen Negative, Urine Propoxyphene Screen Negative 02/18/17 14:22: Lactic Acid Level 1.6 02/18/17 18:15: Ammonia 53.9H, C-Reactive Protein 2.60H, Erythrocyte Sedimentation Rate 16, Free Thyroxine (T4) Calculated 1.29, NZ-Num-H-Type Natriuretic Peptide 333, Total Creatine Kinase 574*H, Vitamin D 1,25-Dihydroxy [Pending] 02/19/17 05:35: Total Creatine Kinase 560*H, Alanine Aminotransferase (ALT/SGPT) 58, Albumin 2.9 #L, Albumin/Globulin Ratio 1.035L, Alkaline Phosphatase 162H, Anion Gap 9.4, Aspartate Amino Transf (AST/SGOT) 96H, BUN/Creatinine Ratio 29H, Basophils # ( Auto) 0.0, Basophils (%) (Auto) 0, Blood Urea Nitrogen 20H, Calcium Level 9.7, Calcium/Ionized Calcium Ratio 4.8H, Calculated Osmolality 278L, Carbon Dioxide Level 26, Chloride Level 111H, Creatinine 0.70, Eosinophils # (Auto) 0.1, Eosinophils (%) (Auto) 1, Estimat Glomerular Filtration Rate 96.0, Estimated GFR (Non- 79.3, Glucose Level 86, Hematocrit 35.20, Hemoglobin 11.4L, Hepatitis A IgM Antibody Negative, Hepatitis B Core IgM Antibody Negative , Hepatitis B Surface Antigen Negative, Hepatitis C Antibody Negative, Lymphocytes # (Auto) 1.7, Lymphocytes (%) (Auto) 23, Mean Corpuscular Hemoglobin 28.9, Mean Corpuscular Hemoglobin Concent 32.4, Mean Corpuscular Volume 89, Mean Platelet Volume 10.3H, Monocytes # (Auto) 0.8, Monocytes (%) ( Auto) 10, Neutrophils # (Auto) 4.7, Neutrophils (%) (Auto) 65, Platelet Count 155, Potassium Level 3.8, Red Blood Count 3.95L, Red Cell Distribution Width 16.0H, Sodium Level 143, Thyroid Stimulating Hormone (TSH) 0.92#, Total Bilirubin 1.0, Total Protein 5.7L, White Blood Count 7.30 02/19/17 14:50: Activated Partial Thromboplast Time 39.9H, Prothromb Time International Ratio 1.2, Prothrombin Time 13.7H 02/20/17 05:50: Ammonia 19.5, Total Creatine Kinase 203#H, Alanine Aminotransferase (ALT/SGPT) 48, Albumin 2.3#L, Albumin/Globulin Ratio 0.958L, Alkaline Phosphatase 131H, Anion Gap 7.0, Aspartate Amino Transf (AST/SGOT) 74H, BUN/Creatinine Ratio 25H, Blood Urea Nitrogen 18, Calcium Level 9.3, Calcium/Ionized Calcium Ratio 5.1H, Calculated Osmolality 273L, Carbon Dioxide Level 26, Chloride Level 111H, Creatinine 0.71, Estimat Glomerular Filtration Rate 94.4, Estimated GFR (Non- 78.1, Glucose Level 92, Potassium Level 3.6, Sodium Level 140, Total Bilirubin 0.8, Total Protein 4.7L, Ferritin 63, Iron (send out) 40L, Total Iron Binding Capacity 182L, Transferrin % Saturation 22 02/21/17 05:10: Albumin 2.4L, [id number]-1-Mkyjxscoqym [Pending], Dtxlq-6-Qksctcnepyg Phenotype [ Pending], Anion Gap 7.3, Anti-Mitochondrial Antibody [Pending], Anti-Nuclear Antibody Screen [Pending], Anti-Smooth Muscle Antibody [Pending], Blood Urea Nitrogen 17, Calcium Level 9.0, Carbon Dioxide Level 28, Chloride Level 106, Creatinine 0.80, Estimat Glomerular Filtration Rate 82.3, Estimated GFR (Non- 68.0, Glucose Level 98, Immunoglobulin G [Pending], Phosphorus Level 2.8, Potassium Level 3.4L, Sodium Level 138 MICRO 02/18 Blood culture Negative to date. 02/18 Hepatitis panel Negative SPEC #: [id number] SAMANTHA: 02/18/17 STATUS: COMP REQ #: [id number] RECD: 02/18/[address]: NICHOL HENRY MD Order Location: ED SOURCE: URINE DESCRIPTION: U CATH Procedure Result Verified URINE CULTURE Final Verified 02/21/17-0851 AM Source: URINE / STRAIGHT CATH, IN/OUT Order Location: EMERGENCY Site: U CATH Received : 02/18/17 17:47 Order#: [id number] Urine Culture FINAL 02/21/17 08:50 S Klebsiella pneumoniae >100,000 cfu/ml Enterococcus faecium 50-100,000 cfu/ml K. pneumo. E. faecium Antibiotic ERICK INT ERICK INT Ampicillin 16 R <=2 S Ampicillin/sulbactam 4 S Cefazolin <=4 S Ceftriaxone <=1 S Ciprofloxacin <=0.25 S Gentamicin <=1 S Gentamicin High Level [place] SYN-S S Levofloxacin 2 S Nitrofurantoin 32 S 64 I Tetracycline <=1 S Trimethoprim/Sulfa <=20 S Vancomycin <=0.5 S S=SUSCEPTIBLE I=INTERMEDIATE R=RESISTANT S-DD= SUSCEPTIBLE, DOSE DEPENDENT IMAGING 02/20/17 ECHO: PENDING 02/20/17 US ABDOMEN, COMPLETE PROCEDURE: US abdomen complete. TECHNIQUE: Multiple real-time grayscale images were obtained over the abdomen in various projections. Exam was technically difficult because of bowel gas. INDICATION: Elevated serum ammonia. AVAILABLE COMPARISONS: None. The liver outline is lobulated. It is not enlarged. The length is 14 cm. Color Doppler imaging of the main portal vein was present, and satisfactory flow in the main portal vein could not be demonstrated. The gallbladder is surgically absent. Bile ducts are not dilated. CBD is normal at 3 mm. Only the body of the pancreas was visualized. The main pancreatic duct was not dilated. We cannot see all of the body. The tail and head were obscured by bowel gas. Spleen is not enlarged with no obvious focal lesion. Aorta was negative although the bifurcation of the aorta could not be satisfactorily seen. Visualized inferior vena cava is negative. The kidneys are negative. Mild/ moderate perihepatic ascites is present. IMPRESSION: Hepatic findings consistent with cirrhosis. No flow could be detected in the main portal vein with color Doppler imaging. This could be artifactual related to technical factors or related to slow flow or thrombosis. Perihepatic ascites. 02/18/17 CT HEAD WO CLINICAL INDICATION: Patient with weakness. Fell. Patient found unresponsive. EXAM: Axial CT scan of brain performed without IV contrast. Coronal sagittal reformatted images are created. COMPARISON: Head CT without IV contrast dated 02/03/2017. FINDINGS: There is no evidence of acute cerebral infarct, intracranial hemorrhage, or gross mass effect. Again seen patchy confluent areas of low-attenuation white matter changes seen throughout both cerebral hemispheres, likely representing chronic small vessel ischemic disease and leukoaraiosis. There is normal bee-white matter distinction. The brain parenchymal volume appears appropriate for patient's age. There is no significant midline shift or herniation. There is no evidence of hydrocephalus. The basal cisterns are unremarkable. The skull, extracranial soft tissue, and orbits are unremarkable. There is mild mucosal thickening involving the ethmoid sinus. IMPRESSION: Stable CT scan of brain with no evidence of interval acute intracranial process. REFERENCE 02/03/17 CHEST 1 VIEW, AP/PA ONLY* INDICATION: Chest pain and dyspnea. DISCUSSION: Single portable upright view of the chest was obtained, comparison . Cardiomegaly is stable. Small left pleural effusion appears new. Patchy opacity within the medial left lung base could represent atelectasis and/ or pneumonia. Mildly elevated right hemidiaphragm is stable. No osseous abnormality. IMPRESSION: 1. Small left pleural effusion. 2. Cardiomegaly. 3. Left lung base opacities. ASSESSMENT Radha Abarca is a 86 year old female admitted from ED 02/18 with encephalopathy and a significant decline in function and ability to provide self-care. She was found to have urinary tract infection. She was also found to have hyperammonemia and she has chronic BLE edema. Further workup revealed cirrhosis but cause is uncertain. She has several chronic problems. PLAN * Hepatic Encephalopathy: Encephalopathy attributed initially to UTI but ammonia was elevated. Improved with lactulose. TSH normal. Treated UTI. Avoided sedatives and narcotics. OT eval and treat. * Complicated UTI due to Klebsiella pneumoniae and Enterococcus faecium: Got ciprofloxacin in ED, but because of encephalopathy, switched to ceftriaxone. In light of culture results and sensitivities, and with improvement in mental status, switched to ciprofloxacin again to complete treatment. * Fatigue, Unintentional Weight Loss: Broad differential. Due to newly- identified liver disease? TSH, FT4 normal. ESR and CRP were not significantly elevated. Treated UTI. T[employer] consult. * BLE Edema: Likely lymphedema, liver disease. No prior history of heart failure. NT-pro-BNP not elevated. Echo pending. JANAE mehta. Started furosemide and spironolactone 02/20. * Heart Murmur, Possible Heart Failure: NT-pro-BNP not elevated, 333. Check echo. * Chronic Liver Disease, Hyperammonemia: New diagnosis. Cirrhosis noted on sono. Hepatitis panel negative. Autoimmune workup pending. Lchzz-5-fzgyprcrogg, ferritin, iron profile pending. Noted she was taking too much acetaminophen at home (from too much [place]) so tylenol toxicity also possible. Ammonia improved with lactulose. After discharge, likely refer to GI for further management. * Rectal hemorrhoid: Perhaps related to cirrhosis. Anusol. Stool softeners. * Rectal Bleeding: From hemorrhoid. Monitor Hgb. * Dehydration: Resolved. On the basis of labs, exam. NS bolus given in ED. Additional liter maintenance. I&O, daily weight. * Elevated CPK, Elevated AST: Resolving. Likely due to recent immobility cause mild rhabdo. Monitor trend. * Medication Non-adherence: Reportedly taking medications at home incorrectly and inconsistently. Likely needs placement, per PCP and family. * Deconditioning, Falls at Home: Vitamin D pending. PT/OT eval and treat. * F/E/N: 2 gram sodium diet. Peripheral IV. I&O, daily weight. * Prophylaxis: Enoxaparin * Code Status: DNR. Discussed at time of admission. * Dispo: Inpatient. Treating UTI. Workup pending for liver disease. Would probably benefit from skilled care. Probably needs long-term placement. Needs GI referral. Work on [facility] placement 02/23. CHRONIC ISSUES * HTN: Lisinopril, amlodipine * Chronic Pain, OA: Hold narcotics due to encephalopathy * Hypothyroidism: TSH normal. Levothyroxine. * HLD: Colesevelam * GERD: Pantoprazole (sub for omeprazole). * History of TIA, CVA: Aspirin THELMA GARZA MD Feb 21, 2017 14:48
[2017-02-21 15:41] VITALS: BP 116/50
[2017-02-21] MEDS: LACTULOSE ORAL SOLUTION 10 GM/15 ML UDC PO PRN (16:33)
[2017-02-21] MEDS: CALCIUM CARBONATE 500 MG PO SCH (18:13)
[2017-02-21] MEDS: MULTIVITAMIN W/MINERALS (THERAGRAN M) TABLET PO SCH (18:13)
--- NOTE | 2017-02-21 18:22 | NUR ---
Patient sitting up in bed consuming supper. Denies pain or distress. JANAE hose intact, erythema persists. Ambulates into bathroom to void throughout afternoon with steady gate. Pleasant and cooperative with cares. Call light in reach.
[2017-02-21] MEDS: HYDROcodone/APAP 5 MG/325 MG (NORCO) TAB PO PRN (20:10)
[2017-02-21] MEDS: CIPROFLOXACIN (CIPRO) 500 MG TABLET PO SCH (20:11)
[2017-02-21] MEDS: LIDOCAINE PATCH REMOVAL TOP SCH (20:17)
[2017-02-22 00:43] VITALS: BP 149/61
[2017-02-22 06:03] LABS: BASOPHILS % (AUTO) 0 % (0-2); EOSINOPHILS # (AUTO) 0.3 10^3uL; EOSINOPHILS % (AUTO) 5 % (0-4); LYMPHOCYTES # (AUTO) 1.9 X10^3; MEAN CORPUSCULAR HEMOGLOBIN 28.7 PG (26.0-34.0); MEAN CORPUSCULAR HGB CONC 31.8 g/dL (31.0-37.0); MEAN CORPUSCULAR VOLUME 90 FL (80-100); MEAN PLATELET VOLUME 10.2 FL (6.0-9.5); MONOCYTES # (AUTO) 0.7 X10^3; MONOCYTES % (AUTO) 12 % (3-11); NEUTROPHILS # (AUTO) 3.2 X10^3; NEUTROPHILS % (AUTO) 52 % (51-67); PLATELET COUNT 147 10^3uL (150-450); WHITE BLOOD COUNT 6.11 10^3uL (4.0-11.0)
[2017-02-22] MEDS: LEVOTHYROXINE 50 MCG (LEVOTHROID) TABLET PO SCH (06:07)
--- NOTE | 2017-02-22 06:46 | NUR ---
Patient rests in bed throughout night without needs. Up to bathroom with walker and standby assistance. Reports minimal pain this AM, up in bed drinking coffee. No needs at this time.
[2017-02-22 07:03] LABS: ALBUMIN 2.2 g/dL (3.4-5.0); ANION GAP 8.4 MEQ/L (3-15); TOTAL PROTEIN 4.5 g/dL (6.4-8.5)
[2017-02-22 08:11] VITALS: BP 134/66
[2017-02-22] MEDS: LACTULOSE ORAL SOLUTION 10 GM/15 ML UDC PO PRN (08:50)
[2017-02-22] MEDS: CIPROFLOXACIN (CIPRO) 500 MG TABLET PO SCH ×2 (08:51→20:52)
[2017-02-22] MEDS: NS FLUSH 3 ML DAILY IV SCH (08:51)
[2017-02-22] MEDS: LIDOCAINE (LIDODERM) 5% PATCH TOP SCH (08:51)
[2017-02-22] MEDS: COLESEVELAM 625 MG PO SCH ×2 (08:51→17:56)
[2017-02-22] MEDS: PANTOPRAZOLE 40 MG (PROTONIX) TAB PO SCH (08:51)
[2017-02-22] MEDS: POLYETHYLENE GLYCOL 17 GM (MIRALAX) PACKET PO SCH (08:51)
[2017-02-22] MEDS: POTASSIUM CHLORIDE ER 10 MEQ CAPSULE PO SCH (08:51)
[2017-02-22] MEDS: OMEGA-3 FATTY ACIDS (FISH OIL) 500 MG CAPSULE PO SCH ×2 (08:52→20:52)
[2017-02-22] MEDS: CHOLECALCIFEROL 1000 INT UNITS (VITAMIN D3) TABLET PO SCH ×2 (08:52→20:53)
[2017-02-22] MEDS: amLODIPine 5 MG (NORVASC) TAB PO SCH (08:52)
[2017-02-22] MEDS: VIT A,C & E/LUTEIN/MINERALS (I-VITE) TABLET PO SCH ×2 (08:52→20:52)
[2017-02-22] MEDS: lisINopril 20 MG (PRINIVIL) TABLET PO SCH (08:52)
[2017-02-22] MEDS: SPIRONOLACTONE 25 MG (ALDACTONE) TABLET PO SCH (08:52)
[2017-02-22] MEDS: FUROSEMIDE 20 MG (LASIX) TAB PO SCH (08:52)
[2017-02-22] MEDS: HYDROCORTISONE 2.5% TOP SCH ×3 (08:53→17:56)
--- NOTE | 2017-02-22 10:41 | Progress Note (E) ---
Progress Note SUBJECTIVE No significant issues overnight. Vitals remain stable. Gave lactulose again yesterday for patient concern of constipation. Had BM x 3. Hgb down to 10.0. AST remains slightly elevated but ALT normal and AlkP in normal range. Ammonia remains elevated, now 38.8. Had previously improved to 19.5 so adding daily scheduled lactulose, lower dose. On exam, pleasant, interactive, oriented. Daughter and son-in-law present. Updated all on findings and plan of care. OBJECTIVE Vital Signs Date Time Temp Pulse Resp B/P Pulse Ox O2 Delivery O2 Flow Rate FiO2 02/22/17 08:11 97.6 73 16 134/66 95 Room air I & O 02/21/17 02/22/17 Cumulative From/Thru 19:00 07:00 02/18/17 11:55 - 02/22/17 05:04 Intake Total 996 ml 687 ml 4166 ml Output Total 325 ml 1050 ml 6275 ml Balance 671 ml -363 ml -2109 ml GEN: Alert, interactive, oriented. NAD at present. HEENT: EOMI, clear sclerae, arcus senilis. Somewhat dry oral mucosa. CV: RRR S1 S2 audible with III/ systolic crescendo murmur loudest at LSB. LUNGS: CTA B though mildly diminished. No R/R/W. ABD: Soft, NT/ND with normal bowel sounds. EXTR: 3+ BLE edema from feet to knees. Bilateral BLE erythema with pebbling and chronic venous stasis changes. INTEG: Legs as described. Otherwise, age related changes and pallor. NEURO: Generalized weakness. Arm strength 4/5 bilaterally. Shuffling gait with PT. No clonus. Normal patellar and ankle reflexes. No asterixis. Weight: 70 kg (75 kg on admit) Lab-Past 14 Days, 35 Results 02/18/17 12:30: Acetaminophen Level < 10.0L, Alanine Aminotransferase (ALT/SGPT) 57, Albumin 3.7 , Albumin/Globulin Ratio 1.156, Alkaline Phosphatase 192H, Anion Gap 14.4, Aspartate Amino Transf (AST/SGOT) 85H, BUN/Creatinine Ratio 28H, Basophils # ( Auto) 0.0, Basophils (%) (Auto) 0, Blood Urea Nitrogen 24H, Calcium Level 10.6, Calcium/Ionized Calcium Ratio 4.8H, Calculated Osmolality 280, Carbon Dioxide Level 25, Chloride Level 108, Creatinine 0.87, Eosinophils # (Auto) 0.0, Eosinophils (%) (Auto) 1, Estimat Glomerular Filtration Rate 74.7, Estimated GFR (Non- 61.7, Glucose Level 100#, Hematocrit 39.50, Hemoglobin 12.7, Lymphocytes # (Auto) 1.2, Lymphocytes (%) (Auto) 18L, Mean Corpuscular Hemoglobin 28.7, Mean Corpuscular Hemoglobin Concent 32.2, Mean Corpuscular Volume 89, Mean Platelet Volume 9.9H, Monocytes # (Auto) 0.5, Monocytes (%) (Auto) 8, XK-Oen-M-Type Natriuretic Peptide 210, Neutrophils # ( Auto) 4.9, Neutrophils (%) (Auto) 73H, Platelet Count 162, Potassium Level 4.5, Red Blood Count 4.43, Red Cell Distribution Width 16.0H, Sodium Level 143, Total Bilirubin 1.1H, Total Protein 6.9, White Blood Count 6.77 02/18/17 12:55: Urine Bacteria 4+H, Urine Bilirubin Negative, Urine Blood Trace-intactH, Urine Clarity Cloudy, Urine Collection Type Catheter, Urine Color Dark yellow, Urine Glucose (UA) Negative, Urine Ketones 1+H, Urine Leukocyte Esterase 1+H, Urine Microscopic RBC 5-10H, Urine Mucus Rare, Urine Nitrite PositiveH, Urine Protein 1+H, Urine Specific Michael 1.025, Urine Squamous Epithelial Cells >100, Urine Urobilinogen 0.2, Urine WBC 10-20H, Urine pH 5.5, Volume Urine Centrifuged 12 ml 02/18/17 13:35: Urine Bacteria 4+H, Urine Bilirubin Negative, Urine Blood Trace-intactH, Urine Clarity Cloudy, Urine Collection Type Catheter, Urine Color Dark yellow, Urine Glucose (UA) Negative, Urine Ketones TraceH, Urine Leukocyte Esterase Negative, Urine Microscopic RBC 0-2, Urine Mucus Rare, Urine Nitrite PositiveH, Urine Protein TraceH, Urine Specific Michael 1.025, Urine Squamous Epithelial Cells None, Urine Urobilinogen 0.2, Urine WBC 5-10H, Urine pH 5.5, Volume Urine Centrifuged <10ml unspun, Ur Tricyclic Antidepressants Screen Negative, Urine Amphetamines Screen Negative, Urine Barbiturates Screen Negative, Urine Benzodiazepines Screen Negative, Urine Cannabinoids Screen Negative, Urine Cocaine Screen Negative, Urine Methadone Screen Negative, Urine Methamphetamines Screen Negative, Urine Opiates Screen PositiveH, Urine Oxycodone Screen Negative, Urine Phencyclidine Screen Negative, Urine Propoxyphene Screen Negative 02/18/17 14:22: Lactic Acid Level 1.6 02/18/17 18:15: Ammonia 53.9H, C-Reactive Protein 2.60H, Erythrocyte Sedimentation Rate 16, Free Thyroxine (T4) Calculated 1.29, QL-Gno-F-Type Natriuretic Peptide 333, Total Creatine Kinase 574*H, Vitamin D 1,25-Dihydroxy [Pending] 02/19/17 05:35: Total Creatine Kinase 560*H, Alanine Aminotransferase (ALT/SGPT) 58, Albumin 2.9 #L, Albumin/Globulin Ratio 1.035L, Alkaline Phosphatase 162H, Anion Gap 9.4, Aspartate Amino Transf (AST/SGOT) 96H, BUN/Creatinine Ratio 29H, Basophils # ( Auto) 0.0, Basophils (%) (Auto) 0, Blood Urea Nitrogen 20H, Calcium Level 9.7, Calcium/Ionized Calcium Ratio 4.8H, Calculated Osmolality 278L, Carbon Dioxide Level 26, Chloride Level 111H, Creatinine 0.70, Eosinophils # (Auto) 0.1, Eosinophils (%) (Auto) 1, Estimat Glomerular Filtration Rate 96.0, Estimated GFR (Non- 79.3, Glucose Level 86, Hematocrit 35.20, Hemoglobin 11.4L, Hepatitis A IgM Antibody Negative, Hepatitis B Core IgM Antibody Negative , Hepatitis B Surface Antigen Negative, Hepatitis C Antibody Negative, Lymphocytes # (Auto) 1.7, Lymphocytes (%) (Auto) 23, Mean Corpuscular Hemoglobin 28.9, Mean Corpuscular Hemoglobin Concent 32.4, Mean Corpuscular Volume 89, Mean Platelet Volume 10.3H, Monocytes # (Auto) 0.8, Monocytes (%) ( Auto) 10, Neutrophils # (Auto) 4.7, Neutrophils (%) (Auto) 65, Platelet Count 155, Potassium Level 3.8, Red Blood Count 3.95L, Red Cell Distribution Width 16.0H, Sodium Level 143, Thyroid Stimulating Hormone (TSH) 0.92#, Total Bilirubin 1.0, Total Protein 5.7L, White Blood Count 7.30 02/19/17 14:50: Activated Partial Thromboplast Time 39.9H, Prothromb Time International Ratio 1.2, Prothrombin Time 13.7H 02/20/17 05:50: Ammonia 19.5, Total Creatine Kinase 203#H, Alanine Aminotransferase (ALT/SGPT) 48, Albumin 2.3#L, Albumin/Globulin Ratio 0.958L, Alkaline Phosphatase 131H, Anion Gap 7.0, Aspartate Amino Transf (AST/SGOT) 74H, BUN/Creatinine Ratio 25H, Blood Urea Nitrogen 18, Calcium Level 9.3, Calcium/Ionized Calcium Ratio 5.1H, Calculated Osmolality 273L, Carbon Dioxide Level 26, Chloride Level 111H, Creatinine 0.71, Estimat Glomerular Filtration Rate 94.4, Estimated GFR (Non- 78.1, Glucose Level 92, Potassium Level 3.6, Sodium Level 140, Total Bilirubin 0.8, Total Protein 4.7L, Ferritin 63, Iron (send out) 40L, Total Iron Binding Capacity 182L, Transferrin % Saturation 22 02/21/17 05:10: Albumin 2.4L, Iboqx-1-Maoxkoqzfop [Pending], Divza-6-Rossnuohorr Phenotype [ Pending], Anion Gap 7.3, Anti-Mitochondrial Antibody [Pending], Anti-Nuclear Antibody Screen [Pending], Anti-Smooth Muscle Antibody [Pending], Blood Urea Nitrogen 17, Calcium Level 9.0, Carbon Dioxide Level 28, Chloride Level 106, Creatinine 0.80, Estimat Glomerular Filtration Rate 82.3, Estimated GFR (Non- 68.0, Glucose Level 98, Immunoglobulin G 864, Phosphorus Level 2.8, Potassium Level 3.4L, Sodium Level 138 02/22/17 05:30: Albumin 2.2L, Anion Gap 8.4, Blood Urea Nitrogen 16, Calcium Level 9.0, Carbon Dioxide Level 27, Chloride Level 108, Creatinine 0.84, Estimat Glomerular Filtration Rate 77.8, Estimated GFR (Non- 64.3, Glucose Level 97 , Potassium Level 3.5, Sodium Level 140, Alanine Aminotransferase (ALT/SGPT) 50 , Albumin/Globulin Ratio 0.956L, Alkaline Phosphatase 116, Ammonia 38.8H, Aspartate Amino Transf (AST/SGOT) 56H, BUN/Creatinine Ratio 19, Basophils # ( Auto) 0.0, Basophils (%) (Auto) 0, C-Reactive Protein 1.80H, Calcium/Ionized Calcium Ratio 5.0H, Calculated Osmolality 271L, Eosinophils # (Auto) 0.3, Eosinophils (%) (Auto) 5H, Hematocrit 31.40L, Hemoglobin 10.0L, Lymphocytes # ( Auto) 1.9, Lymphocytes (%) (Auto) 31, Mean Corpuscular Hemoglobin 28.7, Mean Corpuscular Hemoglobin Concent 31.8, Mean Corpuscular Volume 90, Mean Platelet Volume 10.2H, Monocytes # (Auto) 0.7, Monocytes (%) (Auto) 12H, Neutrophils # ( Auto) 3.2, Neutrophils (%) (Auto) 52, Platelet Count 147L, Prothromb Time International Ratio 1.2, Prothrombin Time 13.1H, Red Blood Count 3.49L, Red Cell Distribution Width 15.7H, Total Bilirubin 0.7, Total Protein 4.5L, White Blood Count 6.11 MICRO 02/18 Blood culture Negative to date. 02/18 Hepatitis panel Negative SPEC #: [id number] SAMANTHA: 02/18/17 STATUS: COMP REQ #: [id number] RECD: 02/18/[address]: NICHOL HENRY MD Order Location: ED SOURCE: URINE DESCRIPTION: U CATH Procedure Result Verified URINE CULTURE Final Verified 02/21/17-0851 AM Source: URINE / STRAIGHT CATH, IN/OUT Order Location: EMERGENCY Site: U CATH Received : 02/18/17 17:47 Order#: [id number] Urine Culture FINAL 02/21/17 08:50 S Klebsiella pneumoniae >100,000 cfu/ml Enterococcus faecium 50-100,000 cfu/ml K. pneumo. E. faecium Antibiotic ERICK INT ERICK INT Ampicillin 16 R <=2 S Ampicillin/sulbactam 4 S Cefazolin <=4 S Ceftriaxone <=1 S Ciprofloxacin <=0.25 S Gentamicin <=1 S Gentamicin High Level [place] SYN-S S Levofloxacin 2 S Nitrofurantoin 32 S 64 I Tetracycline <=1 S Trimethoprim/Sulfa <=20 S Vancomycin <=0.5 S S=SUSCEPTIBLE I=INTERMEDIATE R=RESISTANT S-DD= SUSCEPTIBLE, DOSE DEPENDENT IMAGING 02/20/17 ECHO: PENDING 02/20/17 US ABDOMEN, COMPLETE PROCEDURE: US abdomen complete. TECHNIQUE: Multiple real-time grayscale images were obtained over the abdomen in various projections. Exam was technically difficult because of bowel gas. INDICATION: Elevated serum ammonia. AVAILABLE COMPARISONS: None. The liver outline is lobulated. It is not enlarged. The length is 14 cm. Color Doppler imaging of the main portal vein was present, and satisfactory flow in the main portal vein could not be demonstrated. The gallbladder is surgically absent. Bile ducts are not dilated. CBD is normal at 3 mm. Only the body of the pancreas was visualized. The main pancreatic duct was not dilated. We cannot see all of the body. The tail and head were obscured by bowel gas. Spleen is not enlarged with no obvious focal lesion. Aorta was negative although the bifurcation of the aorta could not be satisfactorily seen. Visualized inferior vena cava is negative. The kidneys are negative. Mild/ moderate perihepatic ascites is present. IMPRESSION: Hepatic findings consistent with cirrhosis. No flow could be detected in the main portal vein with color Doppler imaging. This could be artifactual related to technical factors or related to slow flow or thrombosis. Perihepatic ascites. 02/18/17 CT HEAD WO CLINICAL INDICATION: Patient with weakness. Fell. Patient found unresponsive. EXAM: Axial CT scan of brain performed without IV contrast. Coronal sagittal reformatted images are created. COMPARISON: Head CT without IV contrast dated 02/03/2017. FINDINGS: There is no evidence of acute cerebral infarct, intracranial hemorrhage, or gross mass effect. Again seen patchy confluent areas of low-attenuation white matter changes seen throughout both cerebral hemispheres, likely representing chronic small vessel ischemic disease and leukoaraiosis. There is normal bee-white matter distinction. The brain parenchymal volume appears appropriate for patient's age. There is no significant midline shift or herniation. There is no evidence of hydrocephalus. The basal cisterns are unremarkable. The skull, extracranial soft tissue, and orbits are unremarkable. There is mild mucosal thickening involving the ethmoid sinus. IMPRESSION: Stable CT scan of brain with no evidence of interval acute intracranial process. REFERENCE 02/03/17 CHEST 1 VIEW, AP/PA ONLY* INDICATION: Chest pain and dyspnea. DISCUSSION: Single portable upright view of the chest was obtained, comparison . Cardiomegaly is stable. Small left pleural effusion appears new. Patchy opacity within the medial left lung base could represent atelectasis and/ or pneumonia. Mildly elevated right hemidiaphragm is stable. No osseous abnormality. IMPRESSION: 1. Small left pleural effusion. 2. Cardiomegaly. 3. Left lung base opacities. ASSESSMENT Radha Abarca is a 86 year old female admitted from ED 02/18 with encephalopathy and a significant decline in function and ability to provide self-care. She was found to have urinary tract infection. She was also found to have hyperammonemia and she has chronic BLE edema. Further workup revealed cirrhosis but cause is uncertain. She has several chronic problems. PLAN * Hepatic Encephalopathy: Encephalopathy attributed initially to UTI but ammonia was elevated. Improved with lactulose. TSH normal. Treated UTI. Avoided sedatives and narcotics. OT eval and treat. * Complicated UTI due to Klebsiella pneumoniae and Enterococcus faecium: Got ciprofloxacin in ED, but because of encephalopathy, switched to ceftriaxone. In light of culture results and sensitivities, and with improvement in mental status, switched to ciprofloxacin again to complete treatment. * Chronic Liver Disease, Hyperammonemia: New diagnosis. MELD = 8. Cirrhosis noted on sono. Hepatitis panel negative. Autoimmune workup pending. Alpha-1- antitrypsin pending. Ferritin, iron profile were not suggestive of hemochromatosis. Noted she was taking too much acetaminophen at home (from too much [place]) so tylenol toxicity also possible. Ammonia improved with lactulose... maren again 02/22 so scheduled dosing initiated. After discharge, would refer to GI for follow-up and management. * Rectal hemorrhoid: Perhaps related to cirrhosis. Anusol. Stool softeners. * Rectal Bleeding: From hemorrhoid. Monitor Hgb. * Acute Blood Loss Anemia: Attributed to rectal bleeding from hemorrhoid. Treated hemorrhoid as above. If hemorrhoid and/or bleeding persist, consider referral to surgery for evaluation. * Fatigue, Unintentional Weight Loss: Broad differential. Due to newly- identified liver disease? TSH, FT4 normal. ESR and CRP were not significantly elevated. Treated UTI and treated hepatic encephalopathy. Technical Business Systems Analyst consult. * BLE Edema: Likely lymphedema, liver disease. No prior history of heart failure. NT-pro-BNP not elevated. Echo pending. JANAE mehta. Started furosemide and spironolactone 02/20. * Heart Murmur, Possible Heart Failure: NT-pro-BNP not elevated, 333. Echo pending. * Dehydration: Resolved. On the basis of labs, exam. NS bolus given in ED. Additional liter maintenance. I&O, daily weight. * Elevated CPK, Elevated AST: Resolving. Likely due to recent immobility cause mild rhabdo. Monitor trend. * Medication Non-adherence: Reportedly taking medications at home incorrectly and inconsistently. Likely needs placement, per PCP and family. * Deconditioning, Falls at Home: Vitamin D pending. PT/OT eval and treat. * F/E/N: 2 gram sodium diet. Peripheral IV. I&O, daily weight. * Prophylaxis: Enoxaparin * Code Status: DNR. Discussed at time of admission. * Dispo: Inpatient. Treating UTI. Workup pending for liver disease. Would benefit from skilled care. Probably needs long-term placement. Needs GI referral. Work on fdc placement and GI referral 02/23. CHRONIC ISSUES * HTN: Lisinopril, amlodipine * Chronic Pain, OA: Hold narcotics due to encephalopathy * Hypothyroidism: TSH normal. Levothyroxine. * HLD: Colesevelam * GERD: Pantoprazole (sub for omeprazole). * History of TIA, CVA: Aspirin THELMA GARZA MD Feb 22, 2017 10:31
[2017-02-22 15:47] VITALS: BP 116/51
--- NOTE | 2017-02-22 16:30 | NUR ---
This nurse called to room by MEMORY CARE DIRECTOR. Patient sitting on toilet. Large amount of bright red blood noted in toilet after patient had bowel movement. Visible external hemorrhoid actively bleeding. This nurse holds direct pressure to hemorrhoid for 15 minutes. Bleeding stops. Patient states "I heard what sounded like air and then the blood came". Denies pain, lightheadedness, or other distress. Vital signs WNL. Will continue to monitor.
[2017-02-22] MEDS: CALCIUM CARBONATE 500 MG PO SCH (17:56)
[2017-02-22] MEDS: MULTIVITAMIN W/MINERALS (THERAGRAN M) TABLET PO SCH (17:56)
--- NOTE | 2017-02-22 18:36 | NUR ---
Patient sitting up in bed consuming supper. Denies pain throughout day. No further bleeding from hemorrhoid. Expels one extra large loose bowel movement at 1430. Will notify Dr. Ureña in AM for consult. Remains alert and oriented. Call light in reach.
[2017-02-22] MEDS: HYDROcodone/APAP 5 MG/325 MG (NORCO) TAB PO PRN (20:52)
[2017-02-22] MEDS: LIDOCAINE PATCH REMOVAL TOP SCH (20:53)
[2017-02-23 00:05] VITALS: BP 110/49
[2017-02-23] MEDS: LEVOTHYROXINE 50 MCG (LEVOTHROID) TABLET PO SCH (06:11)
[2017-02-23 06:27] LABS: BASOPHILS % (AUTO) 0 % (0-2); EOSINOPHILS # (AUTO) 0.3 10^3uL; EOSINOPHILS % (AUTO) 5 % (0-4); LYMPHOCYTES # (AUTO) 1.9 X10^3; MEAN CORPUSCULAR HGB CONC 31.8 g/dL (31.0-37.0); MEAN CORPUSCULAR VOLUME 91 FL (80-100); MONOCYTES # (AUTO) 0.7 X10^3; MONOCYTES % (AUTO) 11 % (3-11); NEUTROPHILS # (AUTO) 3.4 X10^3; NEUTROPHILS % (AUTO) 54 % (51-67); PLATELET COUNT 151 10^3uL (150-450); WHITE BLOOD COUNT 6.35 10^3uL (4.0-11.0)
--- NOTE | 2017-02-23 06:32 | NUR ---
Patient rests in bathroom throughout night, up to bathroom with stand-by assistance and has had no bleeding from hemorrhoid this shift. [place] given at HS for hip pain. No needs at this time.
[2017-02-23 08:36] VITALS: BP 120/55
[2017-02-23] MEDS: VIT A,C & E/LUTEIN/MINERALS (I-VITE) TABLET PO SCH (08:42)
[2017-02-23] MEDS: FUROSEMIDE 20 MG (LASIX) TAB PO SCH (08:42)
[2017-02-23] MEDS: COLESEVELAM 625 MG PO SCH (08:43)
[2017-02-23] MEDS: CHOLECALCIFEROL 1000 INT UNITS (VITAMIN D3) TABLET PO SCH (08:43)
[2017-02-23] MEDS: OMEGA-3 FATTY ACIDS (FISH OIL) 500 MG CAPSULE PO SCH (08:43)
[2017-02-23] MEDS: lisINopril 20 MG (PRINIVIL) TABLET PO SCH (08:43)
[2017-02-23] MEDS: SPIRONOLACTONE 25 MG (ALDACTONE) TABLET PO SCH (08:43)
[2017-02-23] MEDS: amLODIPine 5 MG (NORVASC) TAB PO SCH (08:43)
[2017-02-23] MEDS: PANTOPRAZOLE 40 MG (PROTONIX) TAB PO SCH (08:43)
[2017-02-23] MEDS: CIPROFLOXACIN (CIPRO) 500 MG TABLET PO SCH (08:43)
[2017-02-23] MEDS: NS FLUSH 3 ML DAILY IV SCH (08:44)
[2017-02-23] MEDS: POLYETHYLENE GLYCOL 17 GM (MIRALAX) PACKET PO SCH (08:44)
[2017-02-23] MEDS: LIDOCAINE (LIDODERM) 5% PATCH TOP SCH (08:44)
[2017-02-23] MEDS: HYDROCORTISONE 2.5% TOP SCH ×2 (08:44→13:48)
--- NOTE | 2017-02-23 09:25 | PT Daily Note Inpatient (E) ---
PT Daily Treatment Service Date/Time 02/23/17, 09:21 Medical Diagnosis: (1) Weakness ICD Code: R53.1 (2) Malaise ICD Code: R53.81 (3) Encephalopathy ICD Code: G93.40 (4) UTI (urinary tract infection) ICD Code: N39.0 Physical Therapy: (1) Weakness ICD Code: R53.1 (2) Malaise ICD Code: R53.81 Precaution/Isolation: Standard Precautions Resuscitation Status: Do Not Resuscitate Fall Level: High Risk 51 or greater Subjective pt sitting EOB, nsg taking her to shower, states she's feeling good this morning , no pain, agrees to ambulate to shower Pain Level: 0 Oxygen Delivery: Room air O2 liters/minute: 0 Transfers Sit-Stand from bed: Contact Guard Assist (cues for hand placement on bed to stand) Stand-Sit: Contact Guard Assist Gait Ambulation: Contact Guard Assist Distance Walked: 90' Weight Bearing Status: Full Assistive Device: FWW Gait Assist: Min Assist/Contact Guard Gait Description: Normal:No Sig. Deviation, Safe w/ Assistive Device, Flexed Trunk Education/Plan Assessment Tolerates gait well with no deviations, denies fatigue after 90' Safety Awareness: Impaired Response to Treatment: Improving Plan Cont POC Patient will be seen: Daily Thursday-Thursday Discharge Recommendations: NH placement Coding Time In: 910 Time Out: 918 Total Minutes: 8 Charges: [id number] Exercise Therp ISHAAN Pickering PTA February 23, 2017 09:25
--- NOTE | 2017-02-23 10:26 | CONSULTATION REPORT ---
ADMITTING PHYSICIAN: Jaquan Marr MD CONSULTING PHYSICIAN: Stevie Ureña MD REPORT Date of Report: 02/23/2017 FINDINGS: 1) Rectal bleeding 2) Portal venous thrombosis, likely chronic 3) Possible cirrhosis DIAGNOSIS: Internal hemorrhoids with bleeding RECOMMENDATIONS: Continue with stool softeners and conservative management. There doesn't appear to be active bleeding now, but I will continue to follow along and if the bleeding persists or if she requires several transfusions, then surgical intervention might be considered. This was discussed with the patient today. HISTORY AND PRESENT ILLNESS: The patient is an 86-year-old who was admitted from the ER on February 18 with lethargy and urinary tract infection. She is being treated for this and during the course of her hospital stay; she apparently developed bright red blood per rectum including bleeding on February 22 that required the nurse to hold direct pressure to a visible hemorrhoid for about 154 minutes for hemostasis. The patient relates a history of bleeding from hemorrhoids in the past, and has known that she has had these for quite some time. She hasn't had significant pain with them. She has never required surgical intervention. She does deal with some constipation and is recovering from surgery on her right hip after a fracture from a fall in October. She had been taking Harvel each night, and there was some concern that she may have been ingesting too much Tylenol. An ultrasound that was done during this hospitalization revealed, what appeared to be a cirrhotic liver, though her liver enzymes have not been markedly abnormal. Her total bilirubin on the most recheck was 0.8 and her INR was 1.2. The ultrasound also failed to show flow through the portal vein, suggesting that there may be portal vein thrombosis. This doesn't appear to be acute. PAST MEDICAL HISTORY: 1. Hypertension. 2. Hypothyroidism. 3. Hyperlipidemia. 4. Gastroesophageal reflux. 5. History of TIA. 6. History of arthritis. 7. Osteoporosis. 8. Right hip fracture October 2016. 9. History of falls. PAST SURGICAL HISTORY: 1. Tonsillectomy and adenoidectomy. 2. Appendectomy. 3. D&C. 4. Cholecystectomy. 5. Hysterectomy. 6. Oral surgery. 7. Basal cell carcinoma excision. 8. Bilateral eyelid surgery. 9. Right partial hip repair October 2016. 10. Cataract surgery. ALLERGIES: 1. Penicillin. 2. Zojeods-RHX-SxE reductase inhibitors. 3. Meloxicam. MEDICATIONS: See chart. She takes a baby aspirin at home, but no other anticoagulants are listed. SOCIAL HISTORY: She had been living on her own with [employer]al[employer]Ozw[employer] providing some of her meals. REVIEW OF SYSTEMS: As above. PHYSICAL EXAM VITAL SIGNS: Temperature is 96.8, heart rate 70, respirations 16, blood pressure 120/55. O2 sats are 95% on room air. GENERAL: The patient is awake and alert, oriented, and a good historian. She speaks clearly and answers questions appropriately. HEENT: No scleral icterus. LUNGS: Clear to auscultation bilaterally. HEART: S1, S2 regular rate and rhythm. ABDOMEN: Soft and nontender to palpation. There is no periumbilical venostasis or overt evidence of biliary disease. No jaundice to the skin. RECTAL: Inspection of the anal verge reveals small internal hemorrhoids with no ulceration and no active bleeding. Digital exam was not performed. The surrounding skin appears free of any inflammation. EXTREMITIES: She does have significant lower extremity edema bilaterally. SKIN: No jaundice. Warm and dry. NEURO: Grossly intact. LABORATORY: Hemoglobin today was 9.3, yesterday it was 10.0 and on admission it was 12.7.
--- NOTE | 2017-02-23 10:57 | NUR ---
Dr. Ureña in to assess the patient this AM. Will continue to monitor
--- NOTE | 2017-02-23 11:22 | Progress Note (E) ---
Progress Note S: Awake family in room, no new complaints. O: I & O Past 24 hrs 02/23/17 07:00 Intake Total 1480 ml Output Total 2100 ml Balance -620 ml Intake Oral 1480 ml Output Urine Total 2100 ml # Bowel Movements 3 vitals: Vital Signs Date Time Temp Pulse Resp B/P Pulse Ox O2 Delivery O2 Flow Rate FiO2 02/23/17 08:36 96.8 70 16 120/55 95 Room air 02/22/17 15:47 0.00 GEN: Alert, interactive, oriented. NAD at present. HEENT: EOMI, clear sclerae, arcus senilis. moist oral mucosa. CV: RRR S1 S2 audible with III/ systolic crescendo murmur loudest at LSB. LUNGS: CTA B though mildly diminished. No R/R/W. ABD: Soft, NT/ND with normal bowel sounds. EXTR: 3+ BLE edema from feet to knees. Bilateral BLE erythema with pebbling and chronic venous stasis changes. INTEG: Legs as described. Otherwise, age related changes and pallor. NEURO: Generalized weakness. Arm strength 4/5 bilaterally. Shuffling gait with PT. No clonus. Normal patellar and ankle reflexes. No asterixis. Weight: 70 kg (75 kg on admit) Lab-Past 14 Days, 35 Results 02/18/17 12:30: Acetaminophen Level < 10.0L, Alanine Aminotransferase (ALT/SGPT) 57, Albumin 3.7 , Albumin/Globulin Ratio 1.156, Alkaline Phosphatase 192H, Anion Gap 14.4, Aspartate Amino Transf (AST/SGOT) 85H, BUN/Creatinine Ratio 28H, Basophils # ( Auto) 0.0, Basophils (%) (Auto) 0, Blood Urea Nitrogen 24H, Calcium Level 10.6, Calcium/Ionized Calcium Ratio 4.8H, Calculated Osmolality 280, Carbon Dioxide Level 25, Chloride Level 108, Creatinine 0.87, Eosinophils # (Auto) 0.0, Eosinophils (%) (Auto) 1, Estimat Glomerular Filtration Rate 74.7, Estimated GFR (Non- 61.7, Glucose Level 100#, Hematocrit 39.50, Hemoglobin 12.7, Lymphocytes # (Auto) 1.2, Lymphocytes (%) (Auto) 18L, Mean Corpuscular Hemoglobin 28.7, Mean Corpuscular Hemoglobin Concent 32.2, Mean Corpuscular Volume 89, Mean Platelet Volume 9.9H, Monocytes # (Auto) 0.5, Monocytes (%) (Auto) 8, DV-Vhy-R-Type Natriuretic Peptide 210, Neutrophils # ( Auto) 4.9, Neutrophils (%) (Auto) 73H, Platelet Count 162, Potassium Level 4.5, Red Blood Count 4.43, Red Cell Distribution Width 16.0H, Sodium Level 143, Total Bilirubin 1.1H, Total Protein 6.9, White Blood Count 6.77 02/18/17 12:55: Urine Bacteria 4+H, Urine Bilirubin Negative, Urine Blood Trace-intactH, Urine Clarity Cloudy, Urine Collection Type Catheter, Urine Color Dark yellow, Urine Glucose (UA) Negative, Urine Ketones 1+H, Urine Leukocyte Esterase 1+H, Urine Microscopic RBC 5-10H, Urine Mucus Rare, Urine Nitrite PositiveH, Urine Protein 1+H, Urine Specific [place] 1.025, Urine Squamous Epithelial Cells >100, Urine Urobilinogen 0.2, Urine WBC 10-20H, Urine pH 5.5, Volume Urine Centrifuged 12 ml 02/18/17 13:35: Urine Bacteria 4+H, Urine Bilirubin Negative, Urine Blood Trace-intactH, Urine Clarity Cloudy, Urine Collection Type Catheter, Urine Color Dark yellow, Urine Glucose (UA) Negative, Urine Ketones TraceH, Urine Leukocyte Esterase Negative, Urine Microscopic RBC 0-2, Urine Mucus Rare, Urine Nitrite PositiveH, Urine Protein TraceH, Urine Specific [place] 1.025, Urine Squamous Epithelial Cells None, Urine Urobilinogen 0.2, Urine WBC 5-10H, Urine pH 5.5, Volume Urine Centrifuged <10ml unspun, Ur Tricyclic Antidepressants Screen Negative, Urine Amphetamines Screen Negative, Urine Barbiturates Screen Negative, Urine Benzodiazepines Screen Negative, Urine Cannabinoids Screen Negative, Urine Cocaine Screen Negative, Urine Methadone Screen Negative, Urine Methamphetamines Screen Negative, Urine Opiates Screen PositiveH, Urine Oxycodone Screen Negative, Urine Phencyclidine Screen Negative, Urine Propoxyphene Screen Negative 02/18/17 14:22: Lactic Acid Level 1.6 02/18/17 18:15: Ammonia 53.9H, C-Reactive Protein 2.60H, Erythrocyte Sedimentation Rate 16, Free Thyroxine (T4) Calculated 1.29, EB-Hmx-E-Type Natriuretic Peptide 333, Total Creatine Kinase 574*H, Vitamin D 1,25-Dihydroxy [Pending] 02/19/17 05:35: Total Creatine Kinase 560*H, Alanine Aminotransferase (ALT/SGPT) 58, Albumin 2.9 #L, Albumin/Globulin Ratio 1.035L, Alkaline Phosphatase 162H, Anion Gap 9.4, Aspartate Amino Transf (AST/SGOT) 96H, BUN/Creatinine Ratio 29H, Basophils # ( Auto) 0.0, Basophils (%) (Auto) 0, Blood Urea Nitrogen 20H, Calcium Level 9.7, Calcium/Ionized Calcium Ratio 4.8H, Calculated Osmolality 278L, Carbon Dioxide Level 26, Chloride Level 111H, Creatinine 0.70, Eosinophils # (Auto) 0.1, Eosinophils (%) (Auto) 1, Estimat Glomerular Filtration Rate 96.0, Estimated GFR (Non- 79.3, Glucose Level 86, Hematocrit 35.20, Hemoglobin 11.4L, Hepatitis A IgM Antibody Negative, Hepatitis B Core IgM Antibody Negative , Hepatitis B Surface Antigen Negative, Hepatitis C Antibody Negative, Lymphocytes # (Auto) 1.7, Lymphocytes (%) (Auto) 23, Mean Corpuscular Hemoglobin 28.9, Mean Corpuscular Hemoglobin Concent 32.4, Mean Corpuscular Volume 89, Mean Platelet Volume 10.3H, Monocytes # (Auto) 0.8, Monocytes (%) ( Auto) 10, Neutrophils # (Auto) 4.7, Neutrophils (%) (Auto) 65, Platelet Count 155, Potassium Level 3.8, Red Blood Count 3.95L, Red Cell Distribution Width 16.0H, Sodium Level 143, Thyroid Stimulating Hormone (TSH) 0.92#, Total Bilirubin 1.0, Total Protein 5.7L, White Blood Count 7.30 02/19/17 14:50: Activated Partial Thromboplast Time 39.9H, Prothromb Time International Ratio 1.2, Prothrombin Time 13.7H 02/20/17 05:50: Ammonia 19.5, Total Creatine Kinase 203#H, Alanine Aminotransferase (ALT/SGPT) 48, Albumin 2.3#L, Albumin/Globulin Ratio 0.958L, Alkaline Phosphatase 131H, Anion Gap 7.0, Aspartate Amino Transf (AST/SGOT) 74H, BUN/Creatinine Ratio 25H, Blood Urea Nitrogen 18, Calcium Level 9.3, Calcium/Ionized Calcium Ratio 5.1H, Calculated Osmolality 273L, Carbon Dioxide Level 26, Chloride Level 111H, Creatinine 0.71, Estimat Glomerular Filtration Rate 94.4, Estimated GFR (Non- 78.1, Glucose Level 92, Potassium Level 3.6, Sodium Level 140, Total Bilirubin 0.8, Total Protein 4.7L, Ferritin 63, Iron (send out) 40L, Total Iron Binding Capacity 182L, Transferrin % Saturation 22 02/21/17 05:10: Albumin 2.4L, Ctkyu-5-Xurikanfnar [Pending], Bannu-2-Erriuyfzfjs Phenotype [ Pending], Anion Gap 7.3, Anti-Mitochondrial Antibody [Pending], Anti-Nuclear Antibody Screen [Pending], Anti-Smooth Muscle Antibody [Pending], Blood Urea Nitrogen 17, Calcium Level 9.0, Carbon Dioxide Level 28, Chloride Level 106, Creatinine 0.80, Estimat Glomerular Filtration Rate 82.3, Estimated GFR (Non- 68.0, Glucose Level 98, Immunoglobulin G 864, Phosphorus Level 2.8, Potassium Level 3.4L, Sodium Level 138 02/22/17 05:30: Albumin 2.2L, Anion Gap 8.4, Blood Urea Nitrogen 16, Calcium Level 9.0, Carbon Dioxide Level 27, Chloride Level 108, Creatinine 0.84, Estimat Glomerular Filtration Rate 77.8, Estimated GFR (Non- 64.3, Glucose Level 97 , Potassium Level 3.5, Sodium Level 140, Alanine Aminotransferase (ALT/SGPT) 50 , Albumin/Globulin Ratio 0.956L, Alkaline Phosphatase 116, Ammonia 38.8H, Aspartate Amino Transf (AST/SGOT) 56H, BUN/Creatinine Ratio 19, Basophils # ( Auto) 0.0, Basophils (%) (Auto) 0, C-Reactive Protein 1.80H, Calcium/Ionized Calcium Ratio 5.0H, Calculated Osmolality 271L, Eosinophils # (Auto) 0.3, Eosinophils (%) (Auto) 5H, Hematocrit 31.40L, Hemoglobin 10.0L, Lymphocytes # ( Auto) 1.9, Lymphocytes (%) (Auto) 31, Mean Corpuscular Hemoglobin 28.7, Mean Corpuscular Hemoglobin Concent 31.8, Mean Corpuscular Volume 90, Mean Platelet Volume 10.2H, Monocytes # (Auto) 0.7, Monocytes (%) (Auto) 12H, Neutrophils # ( Auto) 3.2, Neutrophils (%) (Auto) 52, Platelet Count 147L, Prothromb Time International Ratio 1.2, Prothrombin Time 13.1H, Red Blood Count 3.49L, Red Cell Distribution Width 15.7H, Total Bilirubin 0.7, Total Protein 4.5L, White Blood Count 6.11 MICRO 02/18 Blood culture Negative to date. 02/18 Hepatitis panel Negative SPEC #: [id number] SAMANTHA: 02/18/17 STATUS: COMP REQ #: [id number] RECD: 02/18/[address]: NICHOL HENRY MD Order Location: ED SOURCE: URINE DESCRIPTION: U CATH Procedure Result Verified URINE CULTURE Final Verified 02/21/17-0851 AM Source: URINE / STRAIGHT CATH, IN/OUT Order Location: EMERGENCY Site: U CATH Received : 02/18/17 17:47 Order#: [id number] Urine Culture FINAL 02/21/17 08:50 S Klebsiella pneumoniae >100,000 cfu/ml Enterococcus faecium 50-100,000 cfu/ml K. pneumo. E. faecium Antibiotic ERICK INT ERICK INT Ampicillin 16 R <=2 S Ampicillin/sulbactam 4 S Cefazolin <=4 S Ceftriaxone <=1 S Ciprofloxacin <=0.25 S Gentamicin <=1 S Gentamicin High Level [place] SYN-S S Levofloxacin 2 S Nitrofurantoin 32 S 64 I Tetracycline <=1 S Trimethoprim/Sulfa <=20 S Vancomycin <=0.5 S S=SUSCEPTIBLE I=INTERMEDIATE R=RESISTANT S-DD= SUSCEPTIBLE, DOSE DEPENDENT IMAGING 02/20/17 ECHO: PENDING 02/20/17 US ABDOMEN, COMPLETE PROCEDURE: US abdomen complete. TECHNIQUE: Multiple real-time grayscale images were obtained over the abdomen in various projections. Exam was technically difficult because of bowel gas. INDICATION: Elevated serum ammonia. AVAILABLE COMPARISONS: None. The liver outline is lobulated. It is not enlarged. The length is 14 cm. Color Doppler imaging of the main portal vein was present, and satisfactory flow in the main portal vein could not be demonstrated. The gallbladder is surgically absent. Bile ducts are not dilated. CBD is normal at 3 mm. Only the body of the pancreas was visualized. The main pancreatic duct was not dilated. We cannot see all of the body. The tail and head were obscured by bowel gas. Spleen is not enlarged with no obvious focal lesion. Aorta was negative although the bifurcation of the aorta could not be satisfactorily seen. Visualized inferior vena cava is negative. The kidneys are negative. Mild/ moderate perihepatic ascites is present. IMPRESSION: Hepatic findings consistent with cirrhosis. No flow could be detected in the main portal vein with color Doppler imaging. This could be artifactual related to technical factors or related to slow flow or thrombosis. Perihepatic ascites. 02/18/17 CT HEAD WO CLINICAL INDICATION: Patient with weakness. Fell. Patient found unresponsive. EXAM: Axial CT scan of brain performed without IV contrast. Coronal sagittal reformatted images are created. COMPARISON: Head CT without IV contrast dated 02/03/2017. FINDINGS: There is no evidence of acute cerebral infarct, intracranial hemorrhage, or gross mass effect. Again seen patchy confluent areas of low-attenuation white matter changes seen throughout both cerebral hemispheres, likely representing chronic small vessel ischemic disease and leukoaraiosis. There is normal bee-white matter distinction. The brain parenchymal volume appears appropriate for patient's age. There is no significant midline shift or herniation. There is no evidence of hydrocephalus. The basal cisterns are unremarkable. The skull, extracranial soft tissue, and orbits are unremarkable. There is mild mucosal thickening involving the ethmoid sinus. IMPRESSION: Stable CT scan of brain with no evidence of interval acute intracranial process. REFERENCE 02/03/17 CHEST 1 VIEW, AP/PA ONLY* INDICATION: Chest pain and dyspnea. DISCUSSION: Single portable upright view of the chest was obtained, comparison . Cardiomegaly is stable. Small left pleural effusion appears new. Patchy opacity within the medial left lung base could represent atelectasis and/ or pneumonia. Mildly elevated right hemidiaphragm is stable. No osseous abnormality. IMPRESSION: 1. Small left pleural effusion. 2. Cardiomegaly. 3. Left lung base opacities. ASSESSMENT Radha Abarca is a 86 year old female admitted from ED 02/18 with encephalopathy and a significant decline in function and ability to provide self-care. She was found to have urinary tract infection. She was also found to have hyperammonemia and she has chronic BLE edema. Further workup revealed cirrhosis but cause is uncertain. She has several chronic problems. PLAN * Hepatic Encephalopathy: Encephalopathy attributed initially to UTI but ammonia was elevated. Improved with lactulose. TSH normal. Treated UTI. Avoided sedatives and narcotics. OT eval and treat. * Complicated UTI due to Klebsiella pneumoniae and Enterococcus faecium: Got ciprofloxacin in ED, but because of encephalopathy, switched to ceftriaxone. In light of culture results and sensitivities, and with improvement in mental status, switched to ciprofloxacin again to complete treatment. * Chronic Liver Disease, Hyperammonemia: New diagnosis. MELD = 8. Cirrhosis noted on sono. Hepatitis panel negative. Autoimmune workup pending. Alpha-1- antitrypsin pending. Ferritin, iron profile were not suggestive of hemochromatosis. Noted she was taking too much acetaminophen at home (from too much [place]) so tylenol toxicity also possible. Ammonia improved with lactulose... maren again 02/22 so scheduled dosing initiated. After discharge, would refer to GI for follow-up and management. * Rectal hemorrhoid: Perhaps related to cirrhosis. Anusol. Stool softeners. * Rectal Bleeding: From hemorrhoid. Monitor Hgb. * Acute Blood Loss Anemia: Attributed to rectal bleeding from hemorrhoid. Treated hemorrhoid as above. If hemorrhoid and/or bleeding persist, consider referral to surgery for evaluation. * Fatigue, Unintentional Weight Loss: Broad differential. Due to newly- identified liver disease? TSH, FT4 normal. ESR and CRP were not significantly elevated. Treated UTI and treated hepatic encephalopathy. [employer] Recon[employer] Vehicle Driver consult. * BLE Edema: Likely lymphedema, liver disease. No prior history of heart failure. NT-pro-BNP not elevated. Echo pending. JANAE mehta. Started furosemide and spironolactone 02/20. * Heart Murmur, Possible Heart Failure: NT-pro-BNP not elevated, 333. Echo pending. * Dehydration: Resolved. On the basis of labs, exam. NS bolus given in ED. Additional liter maintenance. I&O, daily weight. * Elevated CPK, Elevated AST: Resolving. Likely due to recent immobility cause mild rhabdo. Monitor trend. * Medication Non-adherence: Reportedly taking medications at home incorrectly and inconsistently. Likely needs placement, per PCP and family. * Deconditioning, Falls at Home: Vitamin D pending. PT/OT eval and treat. * F/E/N: 2 gram sodium diet. Peripheral IV. I&O, daily weight. * Prophylaxis: Enoxaparin * Code Status: DNR. Discussed at time of admission. * Dispo: Inpatient. Treating UTI. Workup pending for liver disease. Would benefit from skilled care. Probably needs long-term placement. Needs GI referral. Work on jail placement and GI referral 02/23. Will discuss with Dr Salmeron. CHRONIC ISSUES * HTN: Lisinopril, amlodipine * Chronic Pain, OA: Hold narcotics due to encephalopathy * Hypothyroidism: TSH normal. Levothyroxine. * HLD: Colesevelam * GERD: Pantoprazole (sub for omeprazole). * History of TIA, CVA: Aspirin Pt seen and examined with CLINICAL TRIAL DATA MANAGER, agree with above. Pt feels better today and is willing to go to [facility] for skilled care. Family would like her to see Dr. Dukes in [place] for cirrhosis w/u and management. Will arrange placement and referral. Cee Otoole APRN February 23, 2017 11:22 Elia Del Valle MD February 23, 2017 21:13
[2017-02-23] MEDS ORDERED: LACTULOSE ORAL SOLUTION 10 GM/15 ML UDC PO SCH (13:00)
[2017-02-23] MEDS ORDERED: AC325T PO (13:18)
[2017-02-23] MEDS ORDERED: LACT10SO5 PO (13:18)
[2017-02-23] MEDS ORDERED: CPR500T PO (13:23)
[2017-02-23] MEDS ORDERED: SPRN25T PO (13:23)
--- NOTE | 2017-02-23 13:25 | Discharge Instructions (E) ---
Discharge Instructions Instructions Continue all medications as prescribed Dr Dukes's office will contact you for an appointment with her to discuss your liver cirrhosis Contact Dr Salmeron for any questions or concerns You have 2 more days of antibiotics to take then you are finished. Activity Instructions as tolerates Doctor's Appointment Dr Salmeron aware you are at the [facility] Discharge Diet: Salt (sodium) restricted (2 gm sodium) Cee Jama APRN February 23, 2017 13:25
--- NOTE | 2017-02-23 15:13 | Discharge Summary (E FT) ---
Discharge Summary (E FT) Admit Date Feb 18, 2017 at 16:57 Discharge Date February 23, 2017 Admitting Provider Jaquan Marr MD Primary Care Provider Alexis Salmreon MD Attending Provider Jaquan Marr MD Consulting Provider VY UREÑA MD Hospital Course Summary CC: Lethargy, altered mental status. ANALY Abarca is a 86 year old female admitted from ED 02/18 where she presented from home via EMS. Has been lethargic for the last 24 hours and this AM, family report seeing her at kitchen table, not talking, not really able to get up on her own. They had to lower her to the floor. In ED, vitals were actually stable and normal. CBC was fairly unremarkable. Chemistry showed normal electrolytes, preserved renal function. AST 85, ALT 57, AlkP 192, Bili 1.1. Lactic acid was normal. UA showed UTI. Tox screen positive for opiates. CT head negative for acute changes. CXR was not checked but she had a CXR from ED visit 02/03/2017 with results as noted below. She was given NS bolus x 2 in ED and ciprofloxacin. She was then admitted for further management. ED physician reports additional history: has been more confused in the last few weeks. Taking medications incorrectly at home. PCP has been planning to admit her NH but this has not yet happened. On arrival to unit, stirs to exam but appears tired. Responds intermittently. History obtained from son, daughter, who are both present. Son was visiting today for a routine check up and found her slumped at the kitchen table, not very responsive. The front door was open. She has notably been more tired and fatigued. There was concern she maybe had slept all night at the kitchen table. When asked, she says she doesn't know if that's what happened. She says she has been sleeping a lot lately. Has pain in right hip related to prior hip fracture. Denies fever. Has had vomiting at home. No abdominal pain. Denies constipation. Some diarrhea, she thinks. No dyspnea. Denies chest pain. Vital Signs Date Time Temp Pulse Resp B/P Pulse Ox O2 Delivery O2 Flow Rate FiO2 02/23/17 08:36 96.8 70 16 120/55 95 Room air 02/22/17 15:47 0.00 GEN: Alert, interactive, oriented. NAD at present. HEENT: EOMI, clear sclerae, arcus senilis. moist oral mucosa. CV: RRR S1 S2 audible with III/ systolic crescendo murmur loudest at LSB. LUNGS: CTA B though mildly diminished. No R/R/W. ABD: Soft, NT/ND with normal bowel sounds. EXTR: 3+ BLE edema from feet to knees. Bilateral BLE erythema with pebbling and chronic venous stasis changes. INTEG: Legs as described. Otherwise, age related changes and pallor. NEURO: Generalized weakness. Arm strength 4/5 bilaterally. Shuffling gait with PT. No clonus. Normal patellar and ankle reflexes. No asterixis. Weight: 70 kg (75 kg on admit) Lab-Past 14 Days, 35 Results 02/18/17 12:30: Acetaminophen Level < 10.0L, Alanine Aminotransferase (ALT/SGPT) 57, Albumin 3.7 , Albumin/Globulin Ratio 1.156, Alkaline Phosphatase 192H, Anion Gap 14.4, Aspartate Amino Transf (AST/SGOT) 85H, BUN/Creatinine Ratio 28H, Basophils # ( Auto) 0.0, Basophils (%) (Auto) 0, Blood Urea Nitrogen 24H, Calcium Level 10.6, Calcium/Ionized Calcium Ratio 4.8H, Calculated Osmolality 280, Carbon Dioxide Level 25, Chloride Level 108, Creatinine 0.87, Eosinophils # (Auto) 0.0, Eosinophils (%) (Auto) 1, Estimat Glomerular Filtration Rate 74.7, Estimated GFR (Non- 61.7, Glucose Level 100#, Hematocrit 39.50, Hemoglobin 12.7, Lymphocytes # (Auto) 1.2, Lymphocytes (%) (Auto) 18L, Mean Corpuscular Hemoglobin 28.7, Mean Corpuscular Hemoglobin Concent 32.2, Mean Corpuscular Volume 89, Mean Platelet Volume 9.9H, Monocytes # (Auto) 0.5, Monocytes (%) (Auto) 8, RV-Cdo-A-Type Natriuretic Peptide 210, Neutrophils # ( Auto) 4.9, Neutrophils (%) (Auto) 73H, Platelet Count 162, Potassium Level 4.5, Red Blood Count 4.43, Red Cell Distribution Width 16.0H, Sodium Level 143, Total Bilirubin 1.1H, Total Protein 6.9, White Blood Count 6.77 02/18/17 12:55: Urine Bacteria 4+H, Urine Bilirubin Negative, Urine Blood Trace-intactH, Urine Clarity Cloudy, Urine Collection Type Catheter, Urine Color Dark yellow, Urine Glucose (UA) Negative, Urine Ketones 1+H, Urine Leukocyte Esterase 1+H, Urine Microscopic RBC 5-10H, Urine Mucus Rare, Urine Nitrite PositiveH, Urine Protein 1+H, Urine Specific [place] 1.025, Urine Squamous Epithelial Cells >100, Urine Urobilinogen 0.2, Urine WBC 10-20H, Urine pH 5.5, Volume Urine Centrifuged 12 ml 02/18/17 13:35: Urine Bacteria 4+H, Urine Bilirubin Negative, Urine Blood Trace-intactH, Urine Clarity Cloudy, Urine Collection Type Catheter, Urine Color Dark yellow, Urine Glucose (UA) Negative, Urine Ketones TraceH, Urine Leukocyte Esterase Negative, Urine Microscopic RBC 0-2, Urine Mucus Rare, Urine Nitrite PositiveH, Urine Protein TraceH, Urine Specific [place] 1.025, Urine Squamous Epithelial Cells None, Urine Urobilinogen 0.2, Urine WBC 5-10H, Urine pH 5.5, Volume Urine Centrifuged <10ml unspun, Ur Tricyclic Antidepressants Screen Negative, Urine Amphetamines Screen Negative, Urine Barbiturates Screen Negative, Urine Benzodiazepines Screen Negative, Urine Cannabinoids Screen Negative, Urine Cocaine Screen Negative, Urine Methadone Screen Negative, Urine Methamphetamines Screen Negative, Urine Opiates Screen PositiveH, Urine Oxycodone Screen Negative, Urine Phencyclidine Screen Negative, Urine Propoxyphene Screen Negative 02/18/17 14:22: Lactic Acid Level 1.6 02/18/17 18:15: Ammonia 53.9H, C-Reactive Protein 2.60H, Erythrocyte Sedimentation Rate 16, Free Thyroxine (T4) Calculated 1.29, SQ-Aaf-K-Type Natriuretic Peptide 333, Total Creatine Kinase 574*H, Vitamin D 1,25-Dihydroxy [Pending] 02/19/17 05:35: Total Creatine Kinase 560*H, Alanine Aminotransferase (ALT/SGPT) 58, Albumin 2.9 #L, Albumin/Globulin Ratio 1.035L, Alkaline Phosphatase 162H, Anion Gap 9.4, Aspartate Amino Transf (AST/SGOT) 96H, BUN/Creatinine Ratio 29H, Basophils # ( Auto) 0.0, Basophils (%) (Auto) 0, Blood Urea Nitrogen 20H, Calcium Level 9.7, Calcium/Ionized Calcium Ratio 4.8H, Calculated Osmolality 278L, Carbon Dioxide Level 26, Chloride Level 111H, Creatinine 0.70, Eosinophils # (Auto) 0.1, Eosinophils (%) (Auto) 1, Estimat Glomerular Filtration Rate 96.0, Estimated GFR (Non- 79.3, Glucose Level 86, Hematocrit 35.20, Hemoglobin 11.4L, Hepatitis A IgM Antibody Negative, Hepatitis B Core IgM Antibody Negative , Hepatitis B Surface Antigen Negative, Hepatitis C Antibody Negative, Lymphocytes # (Auto) 1.7, Lymphocytes (%) (Auto) 23, Mean Corpuscular Hemoglobin 28.9, Mean Corpuscular Hemoglobin Concent 32.4, Mean Corpuscular Volume 89, Mean Platelet Volume 10.3H, Monocytes # (Auto) 0.8, Monocytes (%) ( Auto) 10, Neutrophils # (Auto) 4.7, Neutrophils (%) (Auto) 65, Platelet Count 155, Potassium Level 3.8, Red Blood Count 3.95L, Red Cell Distribution Width 16.0H, Sodium Level 143, Thyroid Stimulating Hormone (TSH) 0.92#, Total Bilirubin 1.0, Total Protein 5.7L, White Blood Count 7.30 02/19/17 14:50: Activated Partial Thromboplast Time 39.9H, Prothromb Time International Ratio 1.2, Prothrombin Time 13.7H 02/20/17 05:50: Ammonia 19.5, Total Creatine Kinase 203#H, Alanine Aminotransferase (ALT/SGPT) 48, Albumin 2.3#L, Albumin/Globulin Ratio 0.958L, Alkaline Phosphatase 131H, Anion Gap 7.0, Aspartate Amino Transf (AST/SGOT) 74H, BUN/Creatinine Ratio 25H, Blood Urea Nitrogen 18, Calcium Level 9.3, Calcium/Ionized Calcium Ratio 5.1H, Calculated Osmolality 273L, Carbon Dioxide Level 26, Chloride Level 111H, Creatinine 0.71, Estimat Glomerular Filtration Rate 94.4, Estimated GFR (Non- 78.1, Glucose Level 92, Potassium Level 3.6, Sodium Level 140, Total Bilirubin 0.8, Total Protein 4.7L, Ferritin 63, Iron (send out) 40L, Total Iron Binding Capacity 182L, Transferrin % Saturation 22 02/21/17 05:10: Albumin 2.4L, Xcjja-8-Ilbfbjavtze [Pending], Bgtxe-3-Bcegkjxwqah Phenotype [ Pending], Anion Gap 7.3, Anti-Mitochondrial Antibody [Pending], Anti-Nuclear Antibody Screen [Pending], Anti-Smooth Muscle Antibody [Pending], Blood Urea Nitrogen 17, Calcium Level 9.0, Carbon Dioxide Level 28, Chloride Level 106, Creatinine 0.80, Estimat Glomerular Filtration Rate 82.3, Estimated GFR (Non- 68.0, Glucose Level 98, Immunoglobulin G 864, Phosphorus Level 2.8, Potassium Level 3.4L, Sodium Level 138 02/22/17 05:30: Albumin 2.2L, Anion Gap 8.4, Blood Urea Nitrogen 16, Calcium Level 9.0, Carbon Dioxide Level 27, Chloride Level 108, Creatinine 0.84, Estimat Glomerular Filtration Rate 77.8, Estimated GFR (Non- 64.3, Glucose Level 97 , Potassium Level 3.5, Sodium Level 140, Alanine Aminotransferase (ALT/SGPT) 50 , Albumin/Globulin Ratio 0.956L, Alkaline Phosphatase 116, Ammonia 38.8H, Aspartate Amino Transf (AST/SGOT) 56H, BUN/Creatinine Ratio 19, Basophils # ( Auto) 0.0, Basophils (%) (Auto) 0, C-Reactive Protein 1.80H, Calcium/Ionized Calcium Ratio 5.0H, Calculated Osmolality 271L, Eosinophils # (Auto) 0.3, Eosinophils (%) (Auto) 5H, Hematocrit 31.40L, Hemoglobin 10.0L, Lymphocytes # ( Auto) 1.9, Lymphocytes (%) (Auto) 31, Mean Corpuscular Hemoglobin 28.7, Mean Corpuscular Hemoglobin Concent 31.8, Mean Corpuscular Volume 90, Mean Platelet Volume 10.2H, Monocytes # (Auto) 0.7, Monocytes (%) (Auto) 12H, Neutrophils # ( Auto) 3.2, Neutrophils (%) (Auto) 52, Platelet Count 147L, Prothromb Time International Ratio 1.2, Prothrombin Time 13.1H, Red Blood Count 3.49L, Red Cell Distribution Width 15.7H, Total Bilirubin 0.7, Total Protein 4.5L, White Blood Count 6.11 MICRO 02/18 Blood culture Negative to date. 02/18 Hepatitis panel Negative SPEC #: [id number] SAMANTHA: 02/18/17 STATUS: COMP REQ #: [id number] RECD: 02/18/17-[address]: NICHOL HENRY MD Order Location: ED SOURCE: URINE DESCRIPTION: U CATH Procedure Result Verified URINE CULTURE Final Verified 02/21/17-0851 AM Source: URINE / STRAIGHT CATH, IN/OUT Order Location: EMERGENCY Site: U CATH Received : 02/18/17 17:47 Order#: [id number] Urine Culture FINAL 02/21/17 08:50 S Klebsiella pneumoniae >100,000 cfu/ml Enterococcus faecium 50-100,000 cfu/ml K. pneumo. E. faecium Antibiotic ERICK INT ERICK INT Ampicillin 16 R <=2 S Ampicillin/sulbactam 4 S Cefazolin <=4 S Ceftriaxone <=1 S Ciprofloxacin <=0.25 S Gentamicin <=1 S Gentamicin High Level [place] SYN-S S Levofloxacin 2 S Nitrofurantoin 32 S 64 I Tetracycline <=1 S Trimethoprim/Sulfa <=20 S Vancomycin <=0.5 S S=SUSCEPTIBLE I=INTERMEDIATE R=RESISTANT S-DD= SUSCEPTIBLE, DOSE DEPENDENT IMAGING 02/20/17 ECHO: PENDING 02/20/17 US ABDOMEN, COMPLETE PROCEDURE: US abdomen complete. TECHNIQUE: Multiple real-time grayscale images were obtained over the abdomen in various projections. Exam was technically difficult because of bowel gas. INDICATION: Elevated serum ammonia. AVAILABLE COMPARISONS: None. The liver outline is lobulated. It is not enlarged. The length is 14 cm. Color Doppler imaging of the main portal vein was present, and satisfactory flow in the main portal vein could not be demonstrated. The gallbladder is surgically absent. Bile ducts are not dilated. CBD is normal at 3 mm. Only the body of the pancreas was visualized. The main pancreatic duct was not dilated. We cannot see all of the body. The tail and head were obscured by bowel gas. Spleen is not enlarged with no obvious focal lesion. Aorta was negative although the bifurcation of the aorta could not be satisfactorily seen. Visualized inferior vena cava is negative. The kidneys are negative. Mild/ moderate perihepatic ascites is present. IMPRESSION: Hepatic findings consistent with cirrhosis. No flow could be detected in the main portal vein with color Doppler imaging. This could be artifactual related to technical factors or related to slow flow or thrombosis. Perihepatic ascites. 02/18/17 CT HEAD WO CLINICAL INDICATION: Patient with weakness. Fell. Patient found unresponsive. EXAM: Axial CT scan of brain performed without IV contrast. Coronal sagittal reformatted images are created. COMPARISON: Head CT without IV contrast dated 02/03/2017. FINDINGS: There is no evidence of acute cerebral infarct, intracranial hemorrhage, or gross mass effect. Again seen patchy confluent areas of low-attenuation white matter changes seen throughout both cerebral hemispheres, likely representing chronic small vessel ischemic disease and leukoaraiosis. There is normal bee-white matter distinction. The brain parenchymal volume appears appropriate for patient's age. There is no significant midline shift or herniation. There is no evidence of hydrocephalus. The basal cisterns are unremarkable. The skull, extracranial soft tissue, and orbits are unremarkable. There is mild mucosal thickening involving the ethmoid sinus. IMPRESSION: Stable CT scan of brain with no evidence of interval acute intracranial process. REFERENCE 02/03/17 CHEST 1 VIEW, AP/PA ONLY* INDICATION: Chest pain and dyspnea. DISCUSSION: Single portable upright view of the chest was obtained, comparison . Cardiomegaly is stable. Small left pleural effusion appears new. Patchy opacity within the medial left lung base could represent atelectasis and/ or pneumonia. Mildly elevated right hemidiaphragm is stable. No osseous abnormality. IMPRESSION: 1. Small left pleural effusion. 2. Cardiomegaly. 3. Left lung base opacities. ASSESSMENT Radha Abarca is a 86 year old female admitted from ED 02/18 with encephalopathy and a significant decline in function and ability to provide self-care. She was found to have urinary tract infection. She was also found to have hyperammonemia and she has chronic BLE edema. Further workup revealed cirrhosis but cause is uncertain. She has several chronic problems. PLAN * Hepatic Encephalopathy: Encephalopathy attributed initially to UTI but ammonia was elevated. Improved with lactulose. TSH normal. Treated UTI. Avoided sedatives and narcotics. OT eval and treat. * Complicated UTI due to Klebsiella pneumoniae and Enterococcus faecium: Got ciprofloxacin in ED, but because of encephalopathy, switched to ceftriaxone. In light of culture results and sensitivities, and with improvement in mental status, switched to ciprofloxacin again to complete treatment. * Chronic Liver Disease, Hyperammonemia: New diagnosis. MELD = 8. Cirrhosis noted on sono. Hepatitis panel negative. Autoimmune workup pending. Alpha-1- antitrypsin pending. Ferritin, iron profile were not suggestive of hemochromatosis. Noted she was taking too much acetaminophen at home (from too much [place]) so tylenol toxicity also possible. Ammonia improved with lactulose... maren again 02/22 so scheduled dosing initiated. After discharge, would refer to GI for follow-up and management. * Rectal hemorrhoid: Perhaps related to cirrhosis. Anusol. Stool softeners. * Rectal Bleeding: From hemorrhoid. Monitor Hgb. * Acute Blood Loss Anemia: Attributed to rectal bleeding from hemorrhoid. Treated hemorrhoid as above. If hemorrhoid and/or bleeding persist, consider referral to surgery for evaluation. * Fatigue, Unintentional Weight Loss: Broad differential. Due to newly- identified liver disease? TSH, FT4 normal. ESR and CRP were not significantly elevated. Treated UTI and treated hepatic encephalopathy. Fitter Tacker consult. * BLE Edema: Likely lymphedema, liver disease. No prior history of heart failure. NT-pro-BNP not elevated. Echo pending. JANAE mehta. Started furosemide and spironolactone 02/20. * Heart Murmur, Possible Heart Failure: NT-pro-BNP not elevated, 333. Echo pending. * Dehydration: Resolved. On the basis of labs, exam. NS bolus given in ED. Additional liter maintenance. I&O, daily weight. * Elevated CPK, Elevated AST: Resolving. Likely due to recent immobility cause mild rhabdo. Monitor trend. * Medication Non-adherence: Reportedly taking medications at home incorrectly and inconsistently. Likely needs placement, per PCP and family. * Deconditioning, Falls at Home: Vitamin D pending. PT/OT eval and treat. * F/E/N: 2 gram sodium diet. * Code Status: DNR. Discussed at time of admission. * Dispo: Inpatient. Treating UTI. Workup pending for liver disease. Would benefit from skilled care. Probably needs long-term placement. Paperwork sent to Dr Dukes for appt- faxed info today. [facility] for intermediate. Dr. Salmeron ok with DC to [facility] and Dr Dukes to see. Dr Ureña has nothing more to suggest for hemorrhoidal bleeding . Echo pending yet to be f/u by PCP CHRONIC ISSUES * HTN: Lisinopril, amlodipine * Chronic Pain, OA: * Hypothyroidism: TSH normal. Levothyroxine. * HLD: Colesevelam * GERD: Pantoprazole (sub for omeprazole). * History of TIA, CVA: Aspirin Pt seen and examined with ETIOLOGY TEACHER. Agree with above. Pt feeling better, but will need further management of her liver cirrhosis. Referral to Dr. Dukes has been made, also f/u with PCP. AH Discharge Disposition [facility] for intermediate Follow up Instructions Continue all medications as prescribed Dr Dukes's office will contact you for an appointment with her to discuss your liver cirrhosis Contact Dr Salmeron for any questions or concerns You have 2 more days of antibiotics to take then you are finished. Copies to: End of Report . Cee Jama APRN February 23, 2017 15:13 Elia Del Valle MD February 24, 2017 09:21
--- NOTE | 2017-02-23 15:42 | NUR ---
Skin assessment complete, IV removed and the patient is dressed in regular clothes. Family notified and report called to Joie at [facility]. Patient to leave at approximately 1630.
== END 2017-02-23 16:35 | DRG 442 ==
LOC: ED 11:48 → MED/SURG 16:57
PROVIDERS: ADMIT Internal Medicine; ATTEND Internal Medicine
DX: K72.90 Hepatic failure, unspecified without coma (principal); N39.0 Urinary tract infection, site not specified; D62 Acute posthemorrhagic anemia; B96.1 Klebsiella pneumoniae [K. pneumoniae] as the cause of diseases classified elsewhere; K74.60 Unspecified cirrhosis of liver; K64.9 Unspecified hemorrhoids; E86.0 Dehydration; I89.0 Lymphedema, not elsewhere classified; Z66 Do not resuscitate; I10 Essential (primary) hypertension
CPT/HCPCS: 36415; 51701; 70450; 71020; 76700; 80053; 80069; 80074; 80307; 80329; 81003; 81015; 82103; 82104; 82140; 82306; 82550; 82652; 82728; 82784; 83516; 83540; 83550; 83605; 83880; 84439; 84443; 85025; 85610; 85652; 85730; 86038; 86140; 86255; 87040; 87077; 87088; 87186; 93306; 96361; 96374; 99283; 99285

== ENCOUNTER → 2017-02-18 | Outpatient (CLI) | payer MEDICARE ==
[~2017-02-18] MED LIST changes: +AC325T PO; +ASPI-586 PO; +CALC600T12 PO; +CHOL10002 PO; +CPR500T PO; +FURO20TA4 PO; +LACT10SO5 PO; +MULT-1034 PO; +NIAC500T24 PO; +OMEG1CAP14 PO; +OMEP20TA33 PO; +POTA10CA43 PO; +SPRN25T PO; +TR1C15 TOP; +TRIA10PO3 MC; +VIT1CAPS43 PO; +VITA400C58 PO
== END ==
LOC: EMS 11:40
PROVIDERS: ATTEND Emergency Medicine
DX: R41.82 Altered mental status, unspecified (principal); R53.1 Weakness

== ENCOUNTER → 2017-02-24 | Outpatient (REF) | payer MEDICARE ==
[~2017-02-24] MED LIST changes: +AC325T PO; +ASPI-586 PO; +CALC600T12 PO; +CHOL10002 PO; +CPR500T PO; +FURO20TA4 PO; +LACT10SO5 PO; +MULT-1034 PO; +NIAC500T24 PO; +OMEG1CAP14 PO; +OMEP20TA33 PO; +POTA10CA43 PO; +SPRN25T PO; +TR1C15 TOP; +TRIA10PO3 MC; +VIT1CAPS43 PO; +VITA400C58 PO
[2017-02-24 17:20] LABS: BILIRUBIN,URINE Negative (Negative); GLUCOSE, URINE (UA) Negative (Negative); LEUKOCYTE ESTERASE ,URINE Negative (Negative); UROBILINOGEN,URINE 0.2 mg/dL (0.2-1.0)
[2017-02-24 17:24] LABS: CLARITY,URINE Slightly Cloudy; COLOR,URINE Dark Yellow
== END ==
LOC: LAB 13:38
PROVIDERS: ATTEND Family Medicine
DX: N39.0 Urinary tract infection, site not specified (principal)
CPT/HCPCS: 81003

== ENCOUNTER 2017-03-02 22:22 | Emergency (ER) | payer MEDICARE ==
[~2017-03-02] VITALS: Ht 160 cm; Wt 72.3 kg
[2017-03-02 23:36] LABS: BASOPHILS % (AUTO) 0 % (0-2); EOSINOPHILS # (AUTO) 0.6 10^3uL; EOSINOPHILS % (AUTO) 9 % (0-4); LYMPHOCYTES # (AUTO) 2.2 X10^3; MEAN CORPUSCULAR HEMOGLOBIN 29.1 PG (26.0-34.0); MEAN CORPUSCULAR VOLUME 92 FL (80-100); MONOCYTES # (AUTO) 0.8 X10^3; MONOCYTES % (AUTO) 11 % (3-11); NEUTROPHILS # (AUTO) 3.8 X10^3; NEUTROPHILS % (AUTO) 51 % (51-67); PLATELET COUNT 226 10^3uL (150-450); WHITE BLOOD COUNT 7.38 10^3uL (4.0-11.0)
[2017-03-02 23:49] LABS: MEAN CORPUSCULAR HGB CONC 31.7 g/dL (31.0-37.0)
--- NOTE | 2017-03-03 00:10 | NUR ---
Report called to Jo Ann VALADEZ at [facility].
[2017-03-03 00:17] VITALS: BP 143/47
== END 2017-03-03 00:43 | disposition home or self-care (01) ==
LOC: ED 22:24
DX: K62.5 Hemorrhage of anus and rectum (principal)
CPT/HCPCS: 36415; 85025; 99282; 99283

== ENCOUNTER 2017-03-03 16:15 | Emergency (ER) | payer MEDICARE ==
[~2017-03-03] VITALS: Ht 160 cm; Wt 72.3 kg
--- NOTE | 2017-03-03 16:58 | NUR ---
Has appt with "gastroentrologist" in [place] on Thursday, March 09, 2017.
[2017-03-03 17:40] LABS: BASOPHILS % (AUTO) 1 % (0-2); EOSINOPHILS # (AUTO) 0.5 10^3uL; EOSINOPHILS % (AUTO) 8 % (0-4); LYMPHOCYTES # (AUTO) 1.8 X10^3; MEAN CORPUSCULAR HEMOGLOBIN 28.3 PG (26.0-34.0); MEAN CORPUSCULAR VOLUME 91 FL (80-100); MEAN PLATELET VOLUME 8.8 FL (6.0-9.5); MONOCYTES # (AUTO) 0.5 X10^3; MONOCYTES % (AUTO) 9 % (3-11); NEUTROPHILS # (AUTO) 3.2 X10^3; NEUTROPHILS % (AUTO) 53 % (51-67); PLATELET COUNT 228 10^3uL (150-450); WHITE BLOOD COUNT 6.08 10^3uL (4.0-11.0)
--- NOTE | 2017-03-03 18:33 | NUR ---
RECTAL EXAM BY DR. PAGAN ASSISTED BY Raffi BRIONES RN
--- NOTE | 2017-03-03 19:21 | NUR ---
PATIENT RESTING QUIETLY ON ER CART WITH FAMILY AT BEDSIDE. PT AND FAMILY VERBALIZE UNDERSTANDING THAT THEY ARE WAITING ON LAB REPORT.
--- NOTE | 2017-03-03 19:55 | NUR ---
LAB COMPLETED DRAWING SPECIMEN. [facility] TRANSPORT[facility] NOTIFIED.
[2017-03-03 20:51] VITALS: BP 122/47
== END 2017-03-03 20:17 | disposition home or self-care (01) ==
LOC: ED 16:16
DX: K92.1 Melena (principal); K64.4 Residual hemorrhoidal skin tags; K64.9 Unspecified hemorrhoids; K52.1 Toxic gastroenteritis and colitis; T47.3X5A Adverse effect of saline and osmotic laxatives, initial encounter
CPT/HCPCS: 36415; 82140; 85025; 99283

== ENCOUNTER → 2017-03-05 | Outpatient (CLI) | payer MEDICARE | LOC: LAB 10:09 | PROVIDERS: ATTEND Emergency Medicine | DX: K62.5 Hemorrhage of anus and rectum (principal) | CPT/HCPCS: 36415; 85014; 85018 ==